=== PATIENT | female | born 1990 | race Caucasian/White ===

== ENCOUNTER 2017-10-19 10:07 | Emergency (ER) | payer MEDICARE, BC ==
--- NOTE | 2017-10-19 10:56 | ERPHSYRPT ---
- History of Present Illness Time Seen by Provider: 10/19/17 10:47 Source: patient Exam Limitations: no limitations Patient Subjective Stated Complaint: sore throat and acid reflux for three days. took extra prilosec yesterday with relief. patient and mother are concerned about taking too much prilosec with the renal failure. Triage Nursing Assessment: ambulated to room per self. skin w/d, color sallow. resp easy. Physician History: 27-year-old white female with history of the asthma, hypothyroidism, anxiety, ADD, bipolar depression, OCD Who states she is on CAPD secondary to renal failure. Arrives with complaint of chest pain, located in the sternal area described as like something is in there and it hurts to swallow. Patient without shortness of breath no nausea no vomiting. Patient initially presented to the nurses and stated that she was having a sore throat. Patient states symptoms since 9:00 last night. Past medical history includes asthma, hypothyroidism, anxiety, ADD, bipolar, depression, OCD. Past surgical history is negative Timing/Duration: yesterday (last night at 9:00) Severity: moderate Modifying Factors: Improves With: nothing Associated Symptoms: chest pain, No nausea, No vomiting, No abdominal pain, No shortness of breath, No heartburn, No diaphoresis, No cough, No chills, No fever , No headaches, No loss of appetite, No malaise, No rash, No seizure Allergies/Adverse Reactions: sulfamethoxazole [From Bactrim] Allergy (Verified 10/19/17 10:20) trimethoprim [From Bactrim] Allergy (Verified 10/19/17 10:20) Home Medications: Alprazolam [Xanax] 1 mg PO DAILY 05/02/14 [History] Fluvoxamine Maleate 100 mg PO BID 05/02/14 [History] Ibuprofen 800 mg PO TID 05/02/14 [History] Levothyroxine Sodium 100 Mcg [Synthroid 100 Mcg] 112 mcg PO DAILY 05/02/14 [History] [place] Carbonate 300 mg [[place] Carbonate 300 MG] 150 mg PO BID [History] Norethindrone-Ethinyl Estrad [Nortrel 1-35 Tablet] 1 each PO DAILY 05/02/14 [ History] Adalimumab [Humira Pen] 40 mg SQ UD 10/19/17 [History] Amlodipine Besylate 5 mg [Norvasc 5 mg] 5 mg PO DAILY 10/19/17 [History] Calcitriol [Rocaltrol] 0.25 mcg PO 3XW 10/19/17 [History] Cinacalcet HCl [Sensipar] 30 mg PO DAILY 10/19/17 [History] Ferric Citrate [Auryxia] 420 mg PO UD 10/19/17 [History] Ferric Citrate [Auryxia] 630 mg PO AC 10/19/17 [History] Hydrocodone/Acetaminophen [[place] 5-325 Tablet] 1 each PO DAILY 10/19/17 [History ] Melatonin/Pyridoxine HCl (B6) [Melatonin 10 mg Tablet] 1 each PO HS 10/19/17 [ History] Omeprazole 40 mg PO DAILY 10/19/17 [History] Potassium Chloride 10 Meq Tab* [Klor Con 10 MEQ] 10 meq PO BID 10/19/17 [ History] Hx Tetanus, Diphtheria Vaccination/Date Given: Yes Hx Influenza Vaccination/Date Given: Yes Hx Pneumococcal Vaccination/Date Given: Yes - Review of Systems Constitutional: No Fever, No Chills Eyes: No Symptoms Ears, Nose, & Throat: No Symptoms Respiratory: No Cough, No Dyspnea Cardiac: Chest Pain Abdominal/Gastrointestinal: No Abdominal Pain, No Nausea, No Vomiting, No Diarrhea Genitourinary Symptoms: No Dysuria Musculoskeletal: No Back Pain, No Neck Pain Skin: No Rash Neurological: No Dizziness, No Focal Weakness, No Sensory Changes Psychological: No Symptoms Endocrine: No Symptoms All Other Systems: Reviewed and Negative - Past Medical History Pertinent Past Medical History: Yes Neurological History: No Pertinent History Cardiac History: Hypertension Respiratory History: Asthma Endocrine Medical History: Hypothyroidism Musculoskeletal History: Fibromyalgia, Rheumatoid Arthritis History: Renal Disease Psycho-Social History: Anxiety, Attention Deficit Disorder, Bipolar, Depression Other Medical History: ocd, renal failure - Past Surgical History Past Surgical History: Yes Other Surgical History: fistula placment left arm (does not work), peritoneal port placed - Social History Smoking Status: Current every day smoker How long have you smoked: 3 Exposure to second hand smoke: Yes Drug Use: none Patient Lives Alone: No - Female History Hx Now: No - Nursing Vital Signs Nursing Vital Signs: Initial Vital Signs Temperature 98 F 07/01/18 10:15 Pulse Rate 77 10/19/17 10:15 Respiratory Rate 16 10/19/17 10:15 Blood Pressure 147/95 10/19/17 10:15 O2 Sat by Pulse Oximetry 98 10/19/17 10:15 Pain Scale Pain Intensity 8 - Physical Exam General Appearance: no apparent distress, alert, obese Eye Exam: PERRL/EOMI, eyes nml inspection Ears, Nose, Throat Exam: normal ENT inspection, TMs normal, pharynx normal, moist mucous membranes Neck Exam: normal inspection, non-tender, supple, full range of motion Respiratory Exam: normal breath sounds, lungs clear, No respiratory distress Cardiovascular Exam: regular rate/rhythm, normal heart sounds, normal peripheral pulses Gastrointestinal/Abdomen Exam: soft, normal bowel sounds, No tenderness, No mass Back Exam: normal inspection, normal range of motion, No CVA tenderness, No vertebral tenderness Extremity Exam: normal inspection, normal range of motion, pelvis stable Neurologic Exam: alert, oriented x 3, cooperative, 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, normal mood/affect, nml cerebellar function, nml station & gait, sensation nml, No motor deficits Skin Exam: normal color, warm, dry, No rash SpO2 Interpretation: normal (98%) SpO2: 98 Oxygen Delivery: Room Air - Course Nursing assessment & vital signs reviewed: Yes EKG Interpreted by Me: RATE (77 bpm), Sinus Rhythm, NORMAL AXIS, Other (EKG: Sinus rhythm, 77 bpm, normal axis, Q wave an isolated ST elevation in lead 3, no acute changes as compaed to previous ekg) - Radiology Exams Chest X-ray Interpretation: Interpreted by me (no acute disease process noted.) Ordered Tests: Active Orders 24 hr Category Date Time Status EKG-ER Only STAT Care 10/19/17 10:50 Active IV Insertion STAT Care 10/19/17 10:50 Active CHEST 1 VIEW (PORTABLE) Stat Exams 10/19/17 10:51 Taken AMYLASE Routine Lab 10/19/17 11:15 Completed AMYLASE Stat Lab 10/19/17 14:33 Completed CBC W DIFF Stat Lab 10/19/17 11:15 Completed CMP Routine Lab 10/19/17 11:15 Completed HCG QUALITATIVE,SERUM Stat Lab 10/19/17 11:15 Completed LIPASE Routine Lab 10/19/17 11:15 Completed LIPASE Stat Lab 10/19/17 14:33 Completed Manual Differential NC Stat Lab 10/19/17 11:15 Completed TROPONIN Q3H Lab 10/19/17 11:15 Completed TROPONIN Q3H Lab 10/19/17 14:00 Completed TROPONIN Q3H Lab 10/19/17 17:00 Ordered TROPONIN Q3H Lab 10/19/17 20:00 Ordered TROPONIN Q3H Lab 10/19/17 23:00 Ordered Medication Summary Discontinued Medications Generic Name Dose Route Start Last Admin Trade Name Freq PRN Reason Stop Dose Admin Aspirin 162 mg 10/19/17 10:50 10/19/17 11:03 Baby Aspirin 81 Mg Chew PO 10/19/17 10:51 162 mg STAT ONE Administration Morphine Sulfate 4 mg 10/19/17 13:17 10/19/17 13:36 Morphine Sulfate 4 Mg Inj IV 10/19/17 13:18 4 mg STAT ONE Administration Morphine Sulfate Confirm 10/19/17 13:20 Morphine Sulfate 4 Mg Inj Administered 10/19/17 13:21 Dose 4 mg .ROUTE .STK-MED ONE Ondansetron HCl 4 mg 10/19/17 13:17 10/19/17 13:36 Zofran 4 Mg/2 Ml Vial IV 10/19/17 13:18 4 mg STAT ONE Administration Ondansetron HCl Confirm 10/19/17 13:20 Zofran 4 Mg/2 Ml Vial Administered 10/19/17 13:21 Dose 4 mg .ROUTE .STK-MED ONE Lab/Rad Data: Laboratory Result Diagrams 10/19/17 11:15 10/19/17 11:15 Laboratory Results 10/19/17 10/19/17 10/19/17 Range/Units 14:33 14:00 11:15 WBC (4.0-10.5) K/mm3 RBC (4.1-5.4) M/mm3 Hgb (12.0-16.0) gm/dl Hct (35-47) % MCV (78-100) fl MCH (26-32) pg MCHC (32-36) g/dl RDW (11.5-14.0) % Plt Count (150-450) K/mm3 MPV (6-9.5) fl Absolute Granulocytes (1.4-6.9) Segmented Neutrophils (36.0-66.0) % Lymphocytes (Manual) (24-44) % Monocytes (Manual) (0.0-12.0) % Eosinophils (Manual) (0.00-3.0) % Platelet Estimate (NORMAL) RBC Morphology Sodium (137-145) mmol/L Potassium (3.5-5.1) mmol/L Chloride (98-107) mmol/L Carbon Dioxide (22-30) mmol/L Anion Gap (5-15) MEQ/L BUN (7-17) mg/dL Creatinine (0.52-1.04) mg/dL Estimated GFR ML/MIN Glucose (74-106) mg/dL Calcium (8.4-10.2) mg/dL Total Bilirubin (0.2-1.3) mg/dL AST (14-36) U/L ALT (0-35) U/L Alkaline Phosphatase (38-126) U/L Troponin I 0.019 (0.000-0.034) ng/mL Serum Total Protein (6.3-8.2) g/dL Albumin (3.5-5.0) g/dL Amylase 69 (30-110) U/L Lipase 96 (23-300) U/L Serum , Qual NEGATIVE (Negative) 10/19/17 10/19/17 Range/Units 11:15 11:15 WBC 14.4 H (4.0-10.5) K/mm3 RBC 2.87 L (4.1-5.4) M/mm3 Hgb 9.1 L (12.0-16.0) gm/dl Hct 28.6 L (35-47) % MCV 99.7 (78-100) fl MCH 31.7 (26-32) pg MCHC 31.8 L (32-36) g/dl RDW 13.4 (11.5-14.0) % Plt Count 295 (150-450) K/mm3 MPV 9.7 H (6-9.5) fl Absolute Granulocytes 12.12 H (1.4-6.9) Segmented Neutrophils 87 H (36.0-66.0) % Lymphocytes (Manual) 8 L (24-44) % Monocytes (Manual) 4 (0.0-12.0) % Eosinophils (Manual) 1 (0.00-3.0) % Platelet Estimate NORMAL (NORMAL) RBC Morphology NORMAL Sodium 137 (137-145) mmol/L Potassium 3.8 (3.5-5.1) mmol/L Chloride 98 (98-107) mmol/L Carbon Dioxide 26 (22-30) mmol/L Anion Gap 16.1 H (5-15) MEQ/L BUN 101 H (7-17) mg/dL Creatinine 15.68 H (0.52-1.04) mg/dL Estimated GFR 3.0 ML/MIN Glucose 92 (74-106) mg/dL Calcium 8.3 L (8.4-10.2) mg/dL Total Bilirubin 0.40 (0.2-1.3) mg/dL AST 18 (14-36) U/L ALT 22 (0-35) U/L Alkaline Phosphatase 443 H (38-126) U/L Troponin I 0.020 (0.000-0.034) ng/mL Serum Total Protein 6.5 (6.3-8.2) g/dL Albumin 3.7 (3.5-5.0) g/dL Amylase 70 (30-110) U/L Lipase 104 (23-300) U/L Serum , Qual (Negative) - Progress Progress: improved Progress Note: 10/19/17 13:18 27-year-old white female arrives with complaint of pain in the low sternal area since last night initially told the nurse and felt like she was having reflux and was making her throat sore however when I talk with the patient she states that she had pain. The pain has been constant since last night. Patient does have a history of peritoneal dialysis. Patient with an EKG which shows isolated ST elevation in lead 3 there does not appear to be any other changes an EKG is unchanged from previous EKGs. Patient has a chest x-ray was unremarkable. Patient with a white count of 14.4 hemoglobin 9.1 hematocrit 28.6 platelets 295. Patient's chemistry sodium 137 potassium 3.8 chloride 98 bicarbonate 26 BUN 101 creatinine 15.6 glucose is 92. Patient's alkaline phosphatase 443 troponin is normal at 0.020 hCG is negative. Patient is given 281 mg aspirin she states she is still having pain. Note is made of her markedly elevated BUN and creatinine the patient's mother states that is normal for her and she had does peritoneal dialysis at home. Will give Motrin patient morphine 4 mg IV Zofran 4 mg IV obtain amylase and lipase. And we will obtain repeat troponin. Patient and her mother are wanting the patient to go home. 10/19/17 14:48 Patient is in no distress she is eating Repeat troponin within normal limits amylase lipase are within normal limits. Will discharge patient patient to continue CAPD as directed by her renal physician and/or family physician. She is to follow-up with her family doctor. - Departure Time of Disposition: 14:48 Departure Disposition: Home Clinical Impression: Non-cardiac chest pain Chronic renal failure Qualifiers: Chronic kidney disease stage: unspecified stage Qualified Code(s): N18.9 - Chronic kidney disease, unspecified Condition: Fair Critical Care Time: No Referrals: BISHOP ARIAS [Primary Care Provider] - Additional Instructions: Return home. Plenty of fluids. Follow-up with your family doctor. CAPD as directed by your renal physician/ family doctor. Return for acute distress or for severe symptoms.
[2017-10-19] MEDS: BABY ASPIRIN 81 MG CHEW PO ONE (11:03)
[2017-10-19 11:47] LABS: Granulocyte Absolute (ANC) 12.12 (1.4-6.9); Hematocrit 28.6 % (35-47); Hemoglobin 9.1 gm/dl (12.0-16.0); Mean Cell Volume 99.7 fl (78-100); Mean Corpuscular Hemoglobin 31.7 pg (26-32); Mean Corpuscular Hgb Concent. 31.8 g/dl (32-36); Mean Platelet Volume 9.7 fl (6-9.5); Platelet Count 295 K/mm3 (150-450); Red Blood Count 2.87 M/mm3 (4.1-5.4); Red Cell Distribution Width 13.4 % (11.5-14.0); White Blood Count 14.4 K/mm3 (4.0-10.5)
[2017-10-19 12:00] LABS: ALBUMIN 3.7 g/dL (3.5-5.0); ANION GAP 16.1 MEQ/L (5-15); BILIRUBIN,TOTAL 0.4 mg/dL (0.2-1.3); Calcium 8.3 mg/dL (8.4-10.2); Potassium 3.8 mmol/L (3.5-5.1); Total Protein 6.5 g/dL (6.3-8.2)
[2017-10-19 12:12] LABS: TROPONIN 0.02 ng/mL (0.000-0.034)
[2017-10-19 12:17] LABS: Creatinine 1 15.68 mg/dL (0.52-1.04)
[2017-10-19] MEDS ORDERED: MORPHINE SULFATE 4 MG INJ ONE (13:20)
[2017-10-19] MEDS ORDERED: Zofran 4 MG/2 ML VIAL ONE (13:20)
[2017-10-19] MEDS: MORPHINE SULFATE 4 MG INJ IV ONE (13:36)
[2017-10-19] MEDS: Zofran 4 MG/2 ML VIAL IV ONE (13:36)
[2017-10-19 13:38] VITALS: BP 139/87; PULSE 86
[2017-10-19 14:20] LABS: Eosinophil 1 % (0.00-3.0); Lymphocytes 8 % (24-44); Monocyte 4 % (0.0-12.0); Neutrophils 87 % (36.0-66.0); Total Cells Counted 100
[2017-10-19 14:21] LABS: Platelet Estimate NORMAL (NORMAL)
[2017-10-19 14:23] LABS: AMYLASE 69 U/L (30-110); LIPASE 96 U/L (23-300)
[2017-10-19 14:49] VITALS: O2SAT 98
--- NOTE | 2017-10-19 19:41 | XRAY ---
Indication: Chest pain. Comparison: May 02, 2014. Portable chest demonstrates borderline cardiomegaly, less than before. Remaining lungs and bony thorax unremarkable. No new/acute findings.
== END 2017-10-19 14:59 | disposition home or self-care (01) ==
LOC: ED 10:07
DX: R07.89 Other chest pain (principal); I12.9 Hypertensive chronic kidney disease with stage 1 through stage 4 chronic kidney disease, or unspecified chronic kidney disease; N18.9 Chronic kidney disease, unspecified; Z99.2 Dependence on renal dialysis; J45.909 Unspecified asthma, uncomplicated; E03.9 Hypothyroidism, unspecified; M79.7 Fibromyalgia; M06.9 Rheumatoid arthritis, unspecified; F41.9 Anxiety disorder, unspecified; F31.9 Bipolar disorder, unspecified; F42.9 Obsessive-compulsive disorder, unspecified; Z72.0 Tobacco use; Z79.899 Other long term (current) drug therapy
CPT/HCPCS: 36000; 36415; 71045; 80053; 82150; 83690; 84484; 84703; 85025; 93005; 96374; 96375; 99284; J2270; J2405; A9270-GY

== ENCOUNTER 2018-05-30 09:37 | Emergency (ER) | payer MEDICARE, BC ==
--- NOTE | 2018-05-30 10:52 | ERPHSYRPT ---
- History of Present Illness Time Seen by Provider: 05/30/18 10:35 Source: patient, family Exam Limitations: no limitations Patient Subjective Stated Complaint: WAS CUTTING POTATOES THIS AND AND CUT 2ND DIGIT LEFT HAND WITH THE PARING KNIFE. HAS PUT PRESSURE ON SITE WITH A BANDAID. Triage Nursing Assessment: AMBULATED TO ROOM PER SELF. SKIN W/D, COLOR NORMAL, RESP EASY. HAS 2CM LAC TO 2ND DIGIT LEFT HAND WITH SMALL AMT BLEEDING. IS ABLE TO BEND FINGER. Physician History: 27 y/o right handed white female was peeling potatoes this am and accidentally cut her left index finger. could not stop bleeding. tetanus not utd. Timing/Duration: today Quality: painful Severity: mild Location: hands (left index finger) Associated Symptoms: denies symptoms Allergies/Adverse Reactions: heparin Allergy (Verified 05/30/18 09:52) hydromorphone [From Dilaudid] Allergy (Verified 05/30/18 10:00) naproxen Allergy (Verified 05/30/18 10:00) sulfamethoxazole [From Bactrim] Allergy (Verified 10/19/17 10:20) trimethoprim [From Bactrim] Allergy (Verified 10/19/17 10:20) vancomycin Allergy (Verified 05/30/18 10:00) Home Medications: Alprazolam [Xanax] 1 mg PO DAILY 05/02/14 [History] Fluvoxamine Maleate 100 mg PO BID 05/02/14 [History] Levothyroxine Sodium 100 Mcg [Synthroid 100 Mcg] 112 mcg PO DAILY 05/02/14 [History] [place] Carbonate 300 mg [[place] Carbonate 300 MG] 150 mg PO BID [History] Adalimumab [Humira Pen] 40 mg SQ UD 10/19/17 [History] Amlodipine Besylate 5 mg [Norvasc 5 mg] 5 mg PO DAILY 10/19/17 [History] Calcitriol [Rocaltrol] 0.25 mcg PO 3XW 10/19/17 [History] Cinacalcet HCl [Sensipar] 30 mg PO DAILY 10/19/17 [History] Ferric Citrate [Auryxia] 420 mg PO UD 10/19/17 [History] Ferric Citrate [Auryxia] 630 mg PO AC 10/19/17 [History] Hydrocodone/Acetaminophen [[place] 5-325 Tablet] 1 each PO DAILY 10/19/17 [History ] Melatonin/Pyridoxine HCl (B6) [Melatonin 10 mg Tablet] 1 each PO HS 10/19/17 [ History] Omeprazole 40 mg PO DAILY 10/19/17 [History] Potassium Chloride 10 Meq Tab* [Klor Con 10 MEQ] 10 meq PO BID 10/19/17 [ History] Ergocalciferol (Vitamin D2) [Vitamin D] 50,000 unit PO UD 05/30/18 [History] Hx Tetanus, Diphtheria Vaccination/Date Given: Yes Hx Influenza Vaccination/Date Given: Yes Hx Pneumococcal Vaccination/Date Given: No - Review of Systems Constitutional: No Symptoms Eyes: No Symptoms Ears, Nose, & Throat: No Symptoms Respiratory: No Symptoms Cardiac: No Symptoms Abdominal/Gastrointestinal: No Symptoms Genitourinary Symptoms: No Symptoms Musculoskeletal: No Symptoms Skin: Other (1cm lac left index finger) Neurological: No Symptoms Psychological: No Symptoms Endocrine: No Symptoms Hematologic/Lymphatic: No Symptoms Immunological/Allergic: No Symptoms All Other Systems: Reviewed and Negative - Past Medical History Pertinent Past Medical History: Yes Neurological History: No Pertinent History ENT History: No Pertinent History Cardiac History: Hypertension Respiratory History: Asthma Endocrine Medical History: Hypothyroidism Musculoskeletal History: Fibromyalgia, Rheumatoid Arthritis GI Medical History: No Pertinent History History: Renal Disease Psycho-Social History: Anxiety, Attention Deficit Disorder, Bipolar, Depression Female Reproductive Disorders: No Pertinent History Other Medical History: ocd, renal failure - Past Surgical History Past Surgical History: Yes Neuro Surgical History: No Pertinent History Cardiac: No Pertinent History Respiratory: No Pertinent History Gastrointestinal: No Pertinent History Genitourinary: No Pertinent History Musculoskeletal: No Pertinent History Female Surgical History: No Pertinent History Other Surgical History: fistula placment left arm (does not work), peritoneal port placed - Social History Smoking Status: Former smoker How long have you smoked: 3 Exposure to second hand smoke: Yes Drug Use: none Patient Lives Alone: No - Female History Hx Now: No - Nursing Vital Signs Nursing Vital Signs: Initial Vital Signs Temperature 97.6 F 05/30/18 09:44 Pulse Rate 77 05/30/18 09:44 Respiratory Rate 16 05/30/18 09:44 Blood Pressure 125/83 05/30/18 09:44 O2 Sat by Pulse Oximetry 97 05/30/18 09:44 Pain Scale Pain Intensity 3 - Physical Exam General Appearance: no apparent distress, alert Eye Exam: PERRL/EOMI, eyes nml inspection Ears, Nose, Throat Exam: normal ENT inspection, moist mucous membranes Neck Exam: normal inspection, non-tender, supple, full range of motion Respiratory Exam: normal breath sounds, lungs clear, airway intact, No chest tenderness, No respiratory distress, No accessory muscle use, No rhonchi, No wheezing, No stridor Cardiovascular Exam: regular rate/rhythm, normal heart sounds, normal peripheral pulses Gastrointestinal/Abdomen Exam: soft, normal bowel sounds, No tenderness, No guarding Pelvic Exam: not done Rectal Exam: not done Back Exam: normal inspection, normal range of motion, No CVA tenderness, No vertebral tenderness Extremity Exam: normal inspection, normal range of motion, No pelvis stable Neurologic Exam: alert, oriented x 3, cooperative, 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 oozes blood when finger flexed. nv intact, tendon function intact) Lymphatic Exam: No adenopathy SpO2: 97 O2 Delivery: Room Air Procedures - Laceration/Wound Repair Left Dorsal Finger Wound Location: Left, hand Wound Length (cm): 1 Wound's Depth, Shape: superficial Wound Explored: clean Hibiclens Prep: Yes Anesthesia: local, 1% Lidocaine Wound Repaired With: sutures (2) Suture Size/Type: 4-0, prolene Number of Sutures: 2 Sterile Dressing Applied?: Yes Progress: 05/30/18 11:27 no complications. pt salvador well - Course Nursing assessment & vital signs reviewed: Yes Ordered Tests: Medication Summary Discontinued Medications Generic Name Dose Route Start Last Admin Trade Name Freq PRN Reason Stop Dose Admin Bacitracin Zinc 0.9 gm 05/30/18 10:59 05/30/18 11:10 Baciguent Packet TP 05/30/18 11:00 0.9 gm STAT ONE Administration Bacitracin Zinc Confirm 05/30/18 11:07 Baciguent Packet Administered 05/30/18 11:08 Dose 1 gm .ROUTE .STK-MED ONE Diphtheria/Tetanus/Acell Pertussis 0.5 ml 05/30/18 10:56 05/30/18 11:09 Adacel Vial IM 05/30/18 10:57 0.5 ml .ONCE ONE Administration Diphtheria/Tetanus/Acell Pertussis Confirm 05/30/18 11:07 Adacel Vial Administered 05/30/18 11:08 Dose 0.5 ml IM .STK-MED ONE Lidocaine HCl 50 mg 05/30/18 11:01 05/30/18 11:09 Xylocaine-Mpf 1% 5ml Sdv IJ 05/30/18 11:02 Not Given STAT ONE Lidocaine HCl Confirm 05/30/18 11:07 Xylocaine 1% Hcl 20 Ml Mdv Administered 05/30/18 11:08 Dose 5 ml .ROUTE .STK-MED ONE Lidocaine HCl 5 ml 05/30/18 11:08 05/30/18 11:09 Xylocaine 1% Hcl 20 Ml Mdv IJ 05/30/18 11:09 5 ml STAT ONE Administration - Progress Progress: improved Counseled pt/family regarding: diagnosis, need for follow-up - Departure Time of Disposition: 11:28 Departure Disposition: Home Clinical Impression: Finger laceration Condition: Stable Critical Care Time: No Referrals: TOSHIA ESPINOZA MD [Primary Care Provider] - Additional Instructions: keep dry for 24 hours. after 24 hours, may wash daily with soap and water. apply antibiotic ointment and bandaid after each wash. suture removal in 8 ot 10 days.
[2018-05-30] MEDS ORDERED: Adacel Vial IM ONE ×2 (10:56→11:07)
[2018-05-30] MEDS ORDERED: BACIGUENT PACKET TP ONE (10:59)
[2018-05-30] MEDS ORDERED: XYLOCAINE-MPF 1% 5ML SDV IJ ONE (11:01)
[2018-05-30] MEDS ORDERED: XYLOCAINE 1% HCL 20 ML MDV ONE (11:07)
[2018-05-30] MEDS ORDERED: BACIGUENT PACKET ONE (11:07)
[2018-05-30] MEDS ORDERED: XYLOCAINE 1% HCL 20 ML MDV IJ ONE (11:08)
[2018-05-30 11:22] VITALS: BP 124/75; PULSE 75
[2018-05-30 11:29] VITALS: O2SAT 97
== END 2018-05-30 12:14 | disposition home or self-care (01) ==
LOC: ED 09:37
DX: S61.211A Laceration without foreign body of left index finger without damage to nail, initial encounter (principal); W26.0XXA Contact with knife, initial encounter; M79.7 Fibromyalgia; F31.9 Bipolar disorder, unspecified; M06.9 Rheumatoid arthritis, unspecified; Z79.899 Other long term (current) drug therapy
CPT/HCPCS: 12001; 90471; 90715; 96372; 99284; A9270-GY

== ENCOUNTER 2018-09-29 20:29 | Emergency (ER) | payer MEDICARE, BC ==
[2018-09-29 21:24] VITALS: O2SAT 100
[2018-09-29] MEDS ORDERED: Norco 10/325 MG Tablet PO STA (22:11)
[2018-09-29] MEDS ORDERED: Norco 10/325 MG Tablet ONE (22:13)
[2018-09-29] MEDS ORDERED: ROCEPHIN 1 Gm-D5w 50 ml Bag** 1 G/50 ML IVPB IV STA (22:18)
[2018-09-29] MEDS ORDERED: ROCEPHIN 1 Gm-D5w 50 ml Bag** 1 G/50 ML IVPB IV ONE (22:22)
--- NOTE | 2018-09-29 22:25 | ERPHSYRPT ---
- History of Present Illness Historian: patient Exam Limitations: no limitations Patient Subjective Stated Complaint: pt is alert and oriented. pt is ambulatory with a steady gait. pt comes in with c/o pelvic pain. pt states that she's had this pain for "about a week" pt states that she had mirena put in a week ago and was also put on Otezla and had a reaction to it that included n/v/d. pt states that she is having a small amount of vaginal spotting that is pink in color. pt states that she is having some burning with urination. pt bowel sounds are normoactive throughout. pt is a peritoneal dialysis pt and has dialysis daily. pt was diagnosed with peritonitis at the end of August and was put on clindamycin and cubicin for that. Triage Nursing Assessment: see above Physician History: Pt is a 28 y/o female with a H/O PD, that presented to the ED with abdominal pain, that is suprapubic. Per pt she had her PD fluid checked today and that was normal, with no signs of infection. Pt denies F/C/S. No SOB or cough. She does produce some urine but only minimally. Pt does complain of signs of UTI, and states, had it before. Timing/Duration: today Activities at Onset: none Quality: cramping Abdominal Pain Onset Location: suprapubic Pain Radiation: no radiation Severity of Pain-Max: mild Severity of Pain-Current: mild Modifying Factors: Improves With: analgesics Associated Symptoms: denies symptoms Previous symptoms: no prior history Allergies/Adverse Reactions: heparin Allergy (Verified 05/30/18 09:52) hydromorphone [From Dilaudid] Allergy (Verified 05/30/18 10:00) naproxen Allergy (Verified 05/30/18 10:00) sulfamethoxazole [From Bactrim] Allergy (Verified 10/19/17 10:20) trimethoprim [From Bactrim] Allergy (Verified 10/19/17 10:20) vancomycin Allergy (Verified 05/30/18 10:00) Home Medications: Alprazolam [Xanax] 0.5 mg PO BID 05/02/14 [History] Fluvoxamine Maleate 100 mg PO BID 05/02/14 [History] Levothyroxine Sodium 100 Mcg [Synthroid 100 Mcg] 137 mcg PO DAILY 05/02/14 [History] [place] Carbonate 300 mg [[place] Carbonate 300 MG] 150 mg PO BID [History] Amlodipine Besylate 5 mg [Norvasc 5 mg] 5 mg PO DAILY 10/19/17 [History] Calcitriol [Rocaltrol] 0.5 mcg PO DAILY 10/19/17 [History] Ferric Citrate [Auryxia] 420 mg PO UD 10/19/17 [History] Ferric Citrate [Auryxia] 630 mg PO AC 10/19/17 [History] Hydrocodone/Acetaminophen [[place] 5-325 Tablet] 1 each PO BID PRN PRN 10/19/17 [ History] Melatonin/Pyridoxine HCl (B6) [Melatonin 10 mg Tablet] 10 mg PO HS 10/19/17 [ History] Omeprazole 40 mg PO DAILY 10/19/17 [History] Potassium Chloride 10 Meq Tab* [Klor Con 10 MEQ] 80 meq PO DAILY 10/19/17 [ History] Ergocalciferol (Vitamin D2) [Vitamin D] 50,000 unit PO UD 05/30/18 [History] Albuterol Sulfate [Proair Hfa] 8.5 gm IH Q4H PRN PRN 09/29/18 [History] Hx Tetanus, Diphtheria Vaccination/Date Given: Yes Hx Influenza Vaccination/Date Given: Yes Hx Pneumococcal Vaccination/Date Given: No Immunizations Up to Date: Yes - Review of Systems Constitutional: No Fever, No Chills Eyes: No Symptoms Ears, Nose, & Throat: No Symptoms Respiratory: No Cough, No Dyspnea Cardiac: No Chest Pain, No Edema, No Syncope Abdominal/Gastrointestinal: Abdominal Pain (suprapubic) Genitourinary Symptoms: No Symptoms, Other (PD pt.) Musculoskeletal: No Back Pain, No Neck Pain Neurological: No Dizziness, No Focal Weakness, No Sensory Changes - Past Medical History Pertinent Past Medical History: Yes Neurological History: No Pertinent History ENT History: No Pertinent History Cardiac History: Hypertension Respiratory History: Asthma Endocrine Medical History: Hypothyroidism Musculoskeletal History: Fibromyalgia, Rheumatoid Arthritis GI Medical History: No Pertinent History History: Renal Disease Psycho-Social History: Anxiety, Attention Deficit Disorder, Bipolar, Depression Female Reproductive Disorders: No Pertinent History Other Medical History: ocd, renal failure - Past Surgical History Past Surgical History: Yes Neuro Surgical History: No Pertinent History Cardiac: Cardiac Catheterization Respiratory: No Pertinent History Gastrointestinal: No Pertinent History Genitourinary: Other Musculoskeletal: No Pertinent History Female Surgical History: No Pertinent History Other Surgical History: fistula placment left arm (does not work), peritoneal port placed, mirena placement, central line, catheter placements, kidney biopsy - Social History Smoking Status: Former smoker How long have you smoked: 3 Exposure to second hand smoke: Yes Drug Use: none Patient Lives Alone: No - Female History Hx Now: No (mirena a week ago) - Nursing Vital Signs Nursing Vital Signs: Initial Vital Signs Temperature 97.9 F 09/29/18 20:33 Pulse Rate 88 09/29/18 20:33 Respiratory Rate 18 09/29/18 20:33 Blood Pressure 151/102 09/29/18 20:33 O2 Sat by Pulse Oximetry 98 09/29/18 20:33 Pain Scale Pain Intensity 8 - Physical Exam General Appearance: no apparent distress, alert Eye Exam: PERRL/EOMI, eyes nml inspection Ears, Nose, Throat Exam: normal ENT inspection, pharynx normal, moist mucous membranes Neck Exam: normal inspection, non-tender, supple, full range of motion Respiratory Exam: normal breath sounds, lungs clear, No respiratory distress Cardiovascular Exam: regular rate/rhythm, normal heart sounds Gastrointestinal/Abdomen Exam: soft, tenderness (suprapubic), No mass Back Exam: normal inspection, normal range of motion, No CVA tenderness, No vertebral tenderness Extremity Exam: normal inspection, normal range of motion, pelvis stable Neurologic Exam: alert, oriented x 3, cooperative, normal mood/affect, nml cerebellar function, sensation nml, No motor deficits SpO2: 100 Ordered Tests: Active Orders 24 hr Category Date Time Status IV Insertion STAT Care 09/29/18 20:57 Active Urinalysis with Microscopy Stat Lab 09/29/18 21:07 Ordered Medication Summary Generic Name Dose Route Start Last Admin Trade Name Freq PRN Reason Stop Dose Admin Ceftriaxone Sodium/Dextrose 1 g in 50 mls @ 100 mls/hr 09/29/18 22:18 Rocephin 1 Gm-D5w 50 Ml Bag IV 09/29/18 22:47 STAT STA Discontinued Medications Generic Name Dose Route Start Last Admin Trade Name Freq PRN Reason Stop Dose Admin Hydrocodone Bitart/Acetaminophen 1 tab 09/29/18 22:11 09/29/18 22:14 [place] 10/325 Mg Tablet PO 09/29/18 22:12 1 tab ONCE STA Administration Hydrocodone Bitart/Acetaminophen Confirm 09/29/18 22:13 [place] 10/325 Mg Tablet Administered 09/29/18 22:14 Dose 1 tab .ROUTE .STK-MED ONE - Progress Progress: unchanged Progress Note: 09/29/18 22:23 Pt was seen and examined. UA was sent, but as pt produced very little urine, it was not enough to check. I explained to the pt, I am treating her empirically for UTI, and I gave her Ceftriaxone IV 1gr. Pt got [place] for pain. Pt is advised to see her Gas Truck Driver for ABX dosing, secondarey to being PD pt. For now that ABX will cover her. Discussed with : Ham Will see patient in: office Counseled pt/family regarding: need for follow-up - Departure Departure Disposition: Home Clinical Impression: UTI (urinary tract infection) Condition: Stable Critical Care Time: No Referrals: TOSHIA ESPINOZA MD [Primary Care Provider] - Additional Instructions: F/U with Nephrology in the AM, for continuing ABX therapy and dosing. F/U with PCP.
[2018-09-29 22:47] VITALS: BP 141/83; PULSE 84
== END 2018-09-29 22:52 | disposition home or self-care (01) ==
LOC: ED 20:29
DX: N39.0 Urinary tract infection, site not specified (principal)
CPT/HCPCS: 36000; 96366; 99284; J0696; A9270-GY

== ENCOUNTER 2019-01-03 23:08 | Emergency (ER) | payer MEDICARE, BC ==
--- NOTE | 2019-01-03 23:43 | ERPHSYRPT ---
- History of Present Illness Time Seen by Provider: 01/03/19 23:30 Source: family Exam Limitations: no limitations Patient Subjective Stated Complaint: pt c/o cough, congested, and difficulty bringing up any sputum with cough. Hoarseness, sore to neck area. Pt saw Zahira Stevenson NP on , was given atb and steroid, no improvement. Triage Nursing Assessment: pt alert and oriented x3, pleasant. Lungs clear throughout, heart tones reg, abd soft with active bs x4 quad, nontender. Pt c/ o cough and having trouble getting up secretions. Pt c/o neck pain, achiness to that area. Physician History: Patient has had a cough and congestion for 6 days. Patient was seen 3 days ago and started on a Z-pack as her brother was recently diagnosed with viral pneumonia. Patient is not any better and mother is requesting a chest x-ray Timing/Duration: day(s) (6) Cough Quality/Degree: moderate, dry cough Possible Cause: frequent episodes Modifying Factors: Improves With: albuterol nebulizer (helps her cough ). Worsens With: deep breath, rest Associated Symptoms: cough, muscle aches, nasal drainage, wheezing, No fever, No chills, No chest pain/soreness, No dizziness, No earache, No facial pain, No headache, No shortness of breath, No sinus infection, No sore throat International travel in last 2 weeks: No Allergies/Adverse Reactions: hydromorphone [From Dilaudid] Allergy (Verified 05/30/18 10:00) naproxen Allergy (Verified 05/30/18 10:00) sulfamethoxazole [From Bactrim] Allergy (Verified 10/19/17 10:20) trimethoprim [From Bactrim] Allergy (Verified 10/19/17 10:20) vancomycin Allergy (Verified 05/30/18 10:00) Home Medications: Alprazolam [Xanax] 0.5 mg PO BID 05/02/14 [History] Fluvoxamine Maleate 100 mg PO BID 05/02/14 [History] Levothyroxine Sodium 100 Mcg [Synthroid 100 Mcg] 137 mcg PO DAILY 05/02/14 [History] [place] Carbonate 300 mg [[place] Carbonate 300 MG] 150 mg PO BID [History] Amlodipine Besylate 5 mg [Norvasc 5 mg] 5 mg PO DAILY 10/19/17 [History] Calcitriol [Rocaltrol] 0.5 mcg PO DAILY 10/19/17 [History] Ferric Citrate [Auryxia] 420 mg PO UD 10/19/17 [History] Ferric Citrate [Auryxia] 630 mg PO AC 10/19/17 [History] Hydrocodone/Acetaminophen [[place] 5-325 Tablet] 1 each PO BID PRN PRN 10/19/17 [ History] Melatonin/Pyridoxine HCl (B6) [Melatonin 10 mg Tablet] 10 mg PO HS 10/19/17 [ History] Ergocalciferol (Vitamin D2) [Vitamin D] 50,000 unit PO UD 05/30/18 [History] Albuterol Sulfate [Proair Hfa] 8.5 gm IH Q4H PRN PRN 09/29/18 [History] Carvedilol 12.5 mg [Coreg 12.5 mg] 12.5 mg PO BID 01/03/19 [History] Pantoprazole Sodium [Protonix] 40 mg PO DAILY 01/03/19 [History] Hx Tetanus, Diphtheria Vaccination/Date Given: Yes Hx Influenza Vaccination/Date Given: Yes Hx Pneumococcal Vaccination/Date Given: Yes Immunizations Up to Date: Yes - Review of Systems Constitutional: No Fever, No Chills Eyes: No Eye Pain, No Eye Redness, No Vision Changes Ears, Nose, & Throat: No Symptoms, Nose Congestion, No Ear Discharge, No Throat Pain Respiratory: No Cough, No Dyspnea Cardiac: No Chest Pain, No Edema, No Syncope Abdominal/Gastrointestinal: No Abdominal Pain, No Nausea, No Vomiting, No Diarrhea Genitourinary Symptoms: No Dysuria, No Flank Pain Musculoskeletal: Myalgias, No Back Pain, No Neck Pain Skin: No Rash Neurological: No Dizziness, No Focal Weakness, No Sensory Changes Psychological: No Symptoms Endocrine: No Symptoms Hematologic/Lymphatic: No Easy Bleeding, No Easy Bruising All Other Systems: Reviewed and Negative - Past Medical History Pertinent Past Medical History: Yes Neurological History: No Pertinent History ENT History: No Pertinent History Cardiac History: Hypertension Respiratory History: Asthma Endocrine Medical History: Hypothyroidism Musculoskeletal History: Fibromyalgia, Rheumatoid Arthritis GI Medical History: No Pertinent History History: Renal Disease Psycho-Social History: Anxiety, Attention Deficit Disorder, Bipolar, Depression Female Reproductive Disorders: No Pertinent History Other Medical History: ocd, renal failure, autoimmune disorder - Past Surgical History Past Surgical History: Yes Neuro Surgical History: No Pertinent History Cardiac: Cardiac Catheterization Respiratory: No Pertinent History Gastrointestinal: No Pertinent History Genitourinary: Other Musculoskeletal: No Pertinent History Female Surgical History: No Pertinent History Other Surgical History: fistula placment left arm (does not work), dialysis cath rt subclavian, mirena placement, kidney biopsy - Social History Smoking Status: Former smoker How long have you smoked: 3 Exposure to second hand smoke: Yes Drug Use: none Patient Lives Alone: No - Female History Hx Last Menstrual Period: mirena Hx Now: No - Nursing Vital Signs Nursing Vital Signs: Initial Vital Signs Temperature 98.3 F 01/03/19 23:08 Pulse Rate 73 01/03/19 23:08 Respiratory Rate 17 01/03/19 23:08 Blood Pressure 128/88 01/03/19 23:08 O2 Sat by Pulse Oximetry 96 01/03/19 23:08 Pain Scale Pain Intensity 0 - Physical Exam General Appearance: no apparent distress, alert Eye Exam: PERRL/EOMI, eyes nml inspection, No scleral icterus Ears, Nose, Throat Exam: normal ENT inspection, TMs normal, pharynx normal, moist mucous membranes Neck Exam: normal inspection, non-tender, supple, full range of motion Respiratory Exam: normal breath sounds, lungs clear, airway intact, No chest tenderness, No respiratory distress, No diminished breath sounds, No accessory muscle use, No prolonged expirations, No crackles/rales, No rhonchi, No wheezing , No stridor Cardiovascular Exam: regular rate/rhythm, normal heart sounds, capillary refill <2 sec Gastrointestinal/Abdomen Exam: soft, No tenderness, No distention, No mass Back Exam: normal inspection, No CVA tenderness, No vertebral tenderness Extremity Exam: normal inspection, normal range of motion Neurologic Exam: alert, oriented x 3, cooperative, security researcher II-XII nml as tested, normal mood/affect, sensation nml, No motor deficits Skin Exam: normal color, warm, dry, No rash Lymphatic Exam: No adenopathy SpO2 Interpretation: normal SpO2: 96 O2 Delivery: Room Air Ordered Tests: Active Orders 24 hr Category Date Time Status CHEST 2 VIEWS (PA AND LAT) Stat Exams 01/04/19 00:51 Taken - Progress Progress: re-examined Air Movement: good Progress Note: 01/04/19 01:41 patient has excellent air movement throughout her lung avitia without any abnormal breath sounds, no respiratory distress, no hypoxia with no tachypnea and no accessory muscle use noted. Blood Culture(s) Obtained: No Antibiotics given: No Counseled pt/family regarding: diagnosis, need for follow-up, rad results - Departure Departure Disposition: Home Clinical Impression: Cough in adult, Elevated blood pressure reading without diagnosis of hypertension Condition: Good Critical Care Time: No Referrals: TOSHIA ESPINOZA MD [Primary Care Provider] - Follow Up with PCP/3 days Instructions: Cough, Adult (DC) Additional Instructions: We will notify you if the Radiologist interprets anything different from the ED physician's interpretation that will change your management. Return if any worse at any time if you have worse cough, worse pain, new shortness of breath, new chest pain, new fever or any other concerning signs or symptoms for immediate re-evaluation in the emergency department.
[2019-01-04 01:46] VITALS: BP 130/73; PULSE 70; O2SAT 96
--- NOTE | 2019-01-04 09:27 | XRAY ---
Indication: Cough. Comparison: October 19, 2017. PA/lateral chest demonstrates new lingula infiltrate/atelectasis and new right double lumen dialysis catheter. Stable minimal left midlung calcified pleural plaquing. Remaining heart, lungs, and bony thorax unremarkable. Comment: Lingula finding not reported by interpreting ER clinician. Telephone report given to Dr. Chatterjee in the ER at 0920 hrs. on January 04, 2019.
== END 2019-01-04 01:56 | disposition home or self-care (01) ==
LOC: ED 23:08
DX: R91.8 Other nonspecific abnormal finding of lung field (principal); R05 Cough; R03.0 Elevated blood-pressure reading, without diagnosis of hypertension
CPT/HCPCS: 71046; 99283

== ENCOUNTER 2019-11-12 18:53 | Emergency (ER) | payer MEDICARE, BC ==
[2019-11-12] MEDS ORDERED: TORAdol 30 mg Injection IM ONE (19:04)
--- NOTE | 2019-11-12 19:10 | ERPHSYRPT ---
- History of Present Illness Time Seen by Provider: 11/12/19 19:00 Source: patient, EMS Exam Limitations: no limitations Patient Subjective Stated Complaint: PT states "I am not sure what I did, My right hip really hurts." Triage Nursing Assessment: Pt presented alert and oriented X 3, skin pwd. Pt able to speak in clear full sentences pt in no apparent respiratory distress. Pt csm X 4 Physician History: 29 years old with history of psoriasis presented in the ER with chief complaint of right hip pain since she woke up this morning. Described this as a sharp shooting pain moderate to severe intensity, making her unable to bear weight. She has been limping. Relief with resting. Denies any swelling numbness tingling or weakness of right lower extremity. Denies any fall or trauma. She is able to move her knee and ankle/toes without any limitation. Allergies/Adverse Reactions: hydromorphone [From Dilaudid] Allergy (Verified 05/30/18 10:00) naproxen Allergy (Verified 05/30/18 10:00) sulfamethoxazole [From Bactrim] Allergy (Verified 10/19/17 10:20) trimethoprim [From Bactrim] Allergy (Verified 10/19/17 10:20) vancomycin Allergy (Verified 05/30/18 10:00) Home Medications: Alprazolam [Xanax] 0.5 mg PO BID 05/02/14 [History] Fluvoxamine Maleate 100 mg PO BID 05/02/14 [History] Levothyroxine Sodium 100 Mcg [Synthroid 100 Mcg] 137 mcg PO DAILY 05/02/14 [History] [place] Carbonate 300 mg [[place] Carbonate 300 MG] 150 mg PO BID 05/02/14 [History] Amlodipine Besylate 5 mg [Norvasc 5 mg] 5 mg PO DAILY 10/19/17 [History] Calcitriol [Rocaltrol] 0.5 mcg PO DAILY 10/19/17 [History] Ferric Citrate [Auryxia] 420 mg PO UD 10/19/17 [History] Ferric Citrate [Auryxia] 630 mg PO AC 10/19/17 [History] Hydrocodone/Acetaminophen [[place] 5-325 Tablet] 1 each PO BID PRN PRN 10/19/17 [History] Melatonin/Pyridoxine HCl (B6) [Melatonin 10 mg Tablet] 10 mg PO HS 10/19/17 [History] Ergocalciferol (Vitamin D2) [Vitamin D] 50,000 unit PO UD 05/30/18 [History] Albuterol Sulfate [Proair Hfa] 8.5 gm IH Q4H PRN PRN 09/29/18 [History] Carvedilol 12.5 mg [Coreg 12.5 mg] 12.5 mg PO BID 01/03/19 [History] Pantoprazole Sodium [Protonix] 40 mg PO DAILY 01/03/19 [History] Hx Tetanus, Diphtheria Vaccination/Date Given: No Hx Influenza Vaccination/Date Given: Yes Hx Pneumococcal Vaccination/Date Given: No Immunizations Up to Date: Yes Travel Risk - International Travel Have you traveled outside of the country in past 3 weeks: No - Coronavirus Screening Are you exhibiting any of the following symptoms?: No Close contact with a COVID-19 positive Pt in past 14-21 Days: No - Review of Systems Constitutional: No Symptoms Eyes: No Symptoms Ears, Nose, & Throat: No Symptoms Respiratory: No Symptoms Cardiac: No Symptoms Abdominal/Gastrointestinal: No Symptoms Genitourinary Symptoms: No Symptoms Musculoskeletal: Joint Pain Skin: No Symptoms Neurological: No Symptoms Psychological: No Symptoms Endocrine: No Symptoms Hematologic/Lymphatic: No Symptoms Immunological/Allergic: No Symptoms - Past Medical History Pertinent Past Medical History: Yes Neurological History: No Pertinent History ENT History: No Pertinent History Cardiac History: Hypertension, Other Respiratory History: No Pertinent History Endocrine Medical History: Hypothyroidism, Other Musculoskeletal History: Fibromyalgia, Rheumatoid Arthritis GI Medical History: No Pertinent History History: Renal Disease Psycho-Social History: Anxiety, Attention Deficit Disorder, Bipolar, Depression Female Reproductive Disorders: No Pertinent History Other Medical History: ANXIETY, DEPRESSION, BIPOLAR, OCD. LEFT FISTULAR UPPER ARM FOR DIALYSIS. FRIDAY, FRIDAY, AND FRIDAY. - Past Surgical History Past Surgical History: Yes Neuro Surgical History: No Pertinent History Cardiac: Cardiac Catheterization Respiratory: No Pertinent History Gastrointestinal: No Pertinent History Genitourinary: Other Musculoskeletal: No Pertinent History Female Surgical History: No Pertinent History Other Surgical History: fistula placment left arm (does not work), dialysis cath rt subclavian, mirena placement, kidney biopsy - Social History Smoking Status: Former smoker How long have you smoked: 3 Exposure to second hand smoke: Yes Drug Use: none Patient Lives Alone: No - Female History Hx Last Menstrual Period: mirena Hx Now: No - Nursing Vital Signs Nursing Vital Signs: Initial Vital Signs Temperature 97.8 F 11/12/19 18:53 Pulse Rate 95 H 11/12/19 18:53 Respiratory Rate 11/12/19 18:53 Blood Pressure 109/76 11/12/19 18:53 O2 Sat by Pulse Oximetry 100 11/12/19 18:53 Pain Scale Pain Intensity 6 - Physical Exam General Appearance: no apparent distress Eyes, Ears, Nose, Throat Exam: normal ENT inspection Neck Exam: normal inspection, supple, full range of motion Cardiovascular/Respiratory Exam: chest non-tender, regular rate/rhythm Gastrointestinal/Abdominal Exam: non-tender, soft, no organomegaly, No guarding, No tenderness Back Exam: normal inspection, normal range of motion, No CVA tenderness Hips Exam: right: pain, soft tissue tenderness, bilateral: non-tender, normal inspection, normal range of motion, no evidence of injury, bone tenderness Legs Exam: bilateral leg: non-tender, normal inspection, normal range of motion, no evidence of injury Knees Exam: bilateral knee: non-tender, normal inspection, normal range of motion, no evidence of injury Ankle Exam: bilateral ankle: non-tender, normal inspection, normal range of motion, no evidence of injury Foot Exam: bilateral foot: non-tender, normal inspection, normal range of motion, no evidence of injury Neuro/Tendon Exam: normal sensation, normal motor functions, normal tendon functions Mental Status Exam: alert, oriented x 3, cooperative Skin Exam: normal color SpO2 Interpretation: normal SpO2: 100 O2 Delivery: Room Air Ordered Tests: Active Orders 24 hr Category Date Time Status HIP UNI (2V) INCL PEL IF DONE Stat Exams 11/12/19 21:16 Completed Medication Summary Discontinued Medications Generic Name Dose Route Start Last Admin Trade Name Freq PRN Reason Stop Dose Admin Ketorolac Tromethamine 30 mg 11/12/19 19:04 11/12/19 19:42 Toradol 30 Mg Injection IM 11/12/19 19:05 30 mg STAT ONE Administration Ketorolac Tromethamine Confirm 11/12/19 19:41 Toradol 30 Mg Injection Administered 11/12/19 19:42 Dose 30 mg .ROUTE .STK-MED ONE Oxycodone/Acetaminophen 2 tab 11/12/19 20:57 11/12/19 21:02 Percocet Tablet 5/325mg PO 11/12/19 20:58 2 tab STAT ONE Administration Oxycodone/Acetaminophen Confirm 11/12/19 21:02 Percocet Tablet 5/325mg Administered 11/12/19 21:03 Dose 2 tab .ROUTE .STK-MED ONE - Progress Progress: improved Progress Note: 11/12/19 She is given Toradol for pain. Obtain x-rays which are negative for any obvious fracture dislocation reviewed by me. Official report is pending. Patient is feeling better on reevaluation. She has no signs of cellulitis. No swelling or calf tenderness or thigh tenderness suggesting DVT. I believe patient has hip strain, will continue with NSAIDs and muscle relaxant to go home. Discussed signs symptoms of worsening needing return to ER which she seemed understanding. Stable for discharge. - Departure Departure Disposition: Home Clinical Impression: Hip strain Qualifiers: Encounter type: initial encounter Laterality: right Qualified Code(s): S76.011A - Strain of muscle, fascia and tendon of right hip, initial encounter Condition: Stable Critical Care Time: No Referrals: TOSHIA ESPINOZA MD [Primary Care Provider] - Follow Up with PCP/3 days Instructions: Lower Extremity Muscle Strain (DC), Hip Pain (DC) Additional Instructions: Tylenol/ibuprofen as needed along with muscle relaxants. Follow-up with primary care for reevaluation. Return to ER for any worsening. Prescriptions: Methocarbamol [Robaxin-750] 750 mg PO TID 10 Days #30 tablet
[2019-11-12] MEDS ORDERED: TORAdol 30 mg Injection ONE (19:41)
[2019-11-12] MEDS ORDERED: PERCOCET TABLET 5/325MG PO ONE (20:57)
[2019-11-12] MEDS ORDERED: PERCOCET TABLET 5/325MG ONE (21:02)
[2019-11-12 21:20] VITALS: PULSE 85
--- NOTE | 2019-11-12 21:48 | XRAY ---
Indication: Pain. No known injury. Comparison: None 2 view right hip demonstrates IUD in situ. No other bony, articular, or soft tissue abnormalities.
[2019-11-12 22:10] VITALS: BP 116/58; O2SAT 99
== END 2019-11-12 22:09 | disposition home or self-care (01) ==
LOC: ED 18:53
DX: S76.011A Strain of muscle, fascia and tendon of right hip, initial encounter (principal); M25.551 Pain in right hip; Z79.899 Other long term (current) drug therapy; Z79.891 Long term (current) use of opiate analgesic; I10 Essential (primary) hypertension
CPT/HCPCS: 73502; 96372; 99284; J1885; A9270-GY

== ENCOUNTER 2020-04-15 09:18 | Emergency (ER) | payer MEDICARE, BC ==
[2020-04-15] MEDS ORDERED: Sodium Chloride 0.9% 1000 ML 1,000 ML IV STA (09:30)
[2020-04-15] MEDS ORDERED: Zofran 4 MG/2 ML VIAL IV ONE ×2 (09:30→10:34)
[2020-04-15] MEDS ORDERED: Sodium Chloride 0.9% 1000 ML 1,000 ML ONE (09:36)
[2020-04-15] MEDS ORDERED: Zofran 4 MG/2 ML VIAL ONE ×2 (09:36→10:36)
--- NOTE | 2020-04-15 09:38 | ERPHSYRPT ---
- History of Present Illness Time Seen by Provider: 04/15/20 09:35 Historian: patient, family Exam Limitations: no limitations Patient Subjective Stated Complaint: Pt states "I am a dilysis pt. I was due for dialysis today but I hurt to bad to go. The pain started in my back on the left last night and now it is all in my abdomen on the bottom." Triage Nursing Assessment: Pt presented alert and oriented X 3, skin pwd Pt ambulates with an upright steady gait, able to speak in clear full sentences. pt in no apparent respiratory distress. Physician History: pt developed left flank pain/abd pain last pm, is on regular dialysis for autoimmune kidney dx. has N/V also. no trauma, no shortness of breath. Timing/Duration: yesterday Activities at Onset: none Quality: cramping, sharpness, stabbing Abdominal Pain Onset Location: LUQ, generalized abdomen Pain Radiation: flank Severity of Pain-Max: moderate Severity of Pain-Current: moderate Modifying Factors: Improves With: nothing Associated Symptoms: back, nausea, vomiting Previous symptoms: no prior history Allergies/Adverse Reactions: heparin Allergy (Severe, Verified 04/15/20 09:32) antibodies hydromorphone [From Dilaudid] Allergy (Verified 05/30/18 10:00) naproxen Allergy (Verified 05/30/18 10:00) sulfamethoxazole [From Bactrim] Allergy (Verified 10/19/17 10:20) trimethoprim [From Bactrim] Allergy (Verified 10/19/17 10:20) vancomycin Allergy (Verified 05/30/18 10:00) Home Medications: Alprazolam [Xanax] 0.5 mg PO BID 05/02/14 [History] Fluvoxamine Maleate 100 mg PO BID 05/02/14 [History] Levothyroxine Sodium 100 Mcg [Synthroid 100 Mcg] 137 mcg PO DAILY 05/02/14 [History] [place] Carbonate 300 mg [[place] Carbonate 300 MG] 150 mg PO BID 05/02/14 [History] Calcitriol [Rocaltrol] 0.5 mcg PO DAILY 10/19/17 [History] Ferric Citrate [Auryxia] 420 mg PO UD 10/19/17 [History] Ferric Citrate [Auryxia] 630 mg PO AC 10/19/17 [History] Hydrocodone/Acetaminophen [[place] 5-325 Tablet] 1 each PO BID PRN PRN 10/19/17 [History] Melatonin/Pyridoxine HCl (B6) [Melatonin 10 mg Tablet] 10 mg PO HS 10/19/17 [History] Albuterol Sulfate [Proair Hfa] 8.5 gm IH Q4H PRN PRN 09/29/18 [History] Pantoprazole Sodium [Protonix] 40 mg PO DAILY 01/03/19 [History] Carvedilol 12.5 mg [Coreg 12.5 mg] 12.5 mg PO DAILY 04/15/20 [History] Hx Tetanus, Diphtheria Vaccination/Date Given: Yes Hx Influenza Vaccination/Date Given: Yes Hx Pneumococcal Vaccination/Date Given: No Immunizations Up to Date: Yes Travel Risk - International Travel Have you traveled outside of the country in past 3 weeks: No - Coronavirus Screening Are you exhibiting any of the following symptoms?: No Close contact with a COVID-19 positive Pt in past 14-21 Days: No - Review of Systems Constitutional: No Fever, No Chills Eyes: No Symptoms Ears, Nose, & Throat: No Symptoms Respiratory: No Cough, No Dyspnea Cardiac: No Chest Pain, No Edema, No Syncope Abdominal/Gastrointestinal: Abdominal Pain, Nausea, Vomiting, No Diarrhea Genitourinary Symptoms: No Dysuria Musculoskeletal: Back Pain, No Neck Pain Skin: No Rash Neurological: No Dizziness, No Focal Weakness, No Sensory Changes Psychological: No Symptoms Endocrine: No Symptoms All Other Systems: Reviewed and Negative - Past Medical History Pertinent Past Medical History: Yes Neurological History: No Pertinent History ENT History: No Pertinent History Cardiac History: Hypertension, Other Respiratory History: No Pertinent History Endocrine Medical History: Hypothyroidism, Other Musculoskeletal History: Fibromyalgia, Rheumatoid Arthritis GI Medical History: No Pertinent History History: Renal Disease Psycho-Social History: Anxiety, Attention Deficit Disorder, Bipolar, Depression Female Reproductive Disorders: No Pertinent History Other Medical History: ANXIETY, DEPRESSION, BIPOLAR, OCD. LEFT FISTULAR UPPER ARM FOR DIALYSIS. FRIDAY, FRIDAY, AND FRIDAY. - Past Surgical History Past Surgical History: Yes Neuro Surgical History: No Pertinent History Cardiac: Cardiac Catheterization Respiratory: No Pertinent History Gastrointestinal: No Pertinent History Genitourinary: Other Musculoskeletal: No Pertinent History Female Surgical History: No Pertinent History Other Surgical History: fistula placment left arm (does not work), dialysis cath rt subclavian, mirena placement, kidney biopsy. 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 - Social History Smoking Status: Former smoker How long have you smoked: 3 Exposure to second hand smoke: Yes Drug Use: none Patient Lives Alone: No - Female History Hx Last Menstrual Period: mirena Hx Now: No - Nursing Vital Signs Nursing Vital Signs: Initial Vital Signs Temperature 97.8 F 04/15/20 09:24 Pulse Rate 93 H 04/15/20 09:24 Respiratory Rate 20 04/15/20 09:24 Blood Pressure 149/92 04/15/20 09:24 O2 Sat by Pulse Oximetry 100 04/15/20 09:24 Pain Scale Pain Intensity 4 - Physical Exam General Appearance: no apparent distress, alert Eye Exam: PERRL/EOMI, eyes nml inspection Ears, Nose, Throat Exam: normal ENT inspection, pharynx normal, moist mucous membranes Neck Exam: normal inspection, non-tender, supple, full range of motion Respiratory Exam: normal breath sounds, lungs clear, No respiratory distress Cardiovascular Exam: regular rate/rhythm, normal heart sounds Gastrointestinal/Abdomen Exam: tenderness, guarding, No mass Pelvic Exam: deferred Rectal Exam: deferred Back Exam: normal inspection, normal range of motion, No CVA tenderness, No vertebral tenderness Extremity Exam: normal inspection, normal range of motion, pelvis stable Neurologic Exam: alert, oriented x 3, cooperative, normal mood/affect, nml cerebellar function, sensation nml, No motor deficits Skin Exam: normal color, warm, dry SpO2 Interpretation: normal SpO2: 100 O2 Delivery: Room Air - Course Nursing assessment & vital signs reviewed: Yes Ordered Tests: Active Orders 24 hr Category Date Time Status EKG-ER Only STAT Care 04/15/20 09:30 Active IV Insertion STAT Care 04/15/20 09:30 Active ABDOMEN AND PELVIS W/0 CONTRAS [CT] Stat Exams 04/15/20 09:31 Taken PELVIS TRANS VAGINAL [US] Stat Exams 04/15/20 10:28 Ordered AMYLASE Stat Lab 04/15/20 09:35 Completed CBC W DIFF Stat Lab 04/15/20 09:35 Completed CMP Stat Lab 04/15/20 09:35 Completed HCG QUALITATIVE,SERUM Stat Lab 04/15/20 09:35 Completed LIPASE Stat Lab 04/15/20 09:35 Completed Lactic Acid Stat Lab 04/15/20 09:30 Completed TROPONIN Q3H Lab 04/15/20 09:35 Completed TROPONIN Q3H Lab 04/15/20 12:45 Ordered TROPONIN Q3H Lab 04/15/20 15:45 Ordered TROPONIN Q3H Lab 04/15/20 18:45 Ordered TROPONIN Q3H Lab 04/15/20 21:45 Ordered Medication Summary Discontinued Medications Generic Name Dose Route Start Last Admin Trade Name Freq PRN Reason Stop Dose Admin Diphenhydramine HCl 25 mg 04/15/20 10:34 04/15/20 10:40 Benadryl 50 Mg/Ml IV 04/15/20 10:35 25 mg STAT ONE Administration Diphenhydramine HCl Confirm 04/15/20 10:36 Benadryl 50 Mg/Ml Administered 04/15/20 10:37 Dose 50 mg .ROUTE .STK-MED ONE Fentanyl Citrate 50 mcg 04/15/20 10:33 04/15/20 10:40 Sublimaze 100 Mcg/2 Ml IV 04/15/20 10:34 50 mcg STAT ONE Administration Fentanyl Citrate Confirm 04/15/20 10:40 Sublimaze 100 Mcg/2 Ml Administered 04/15/20 10:41 Dose 100 mcg .ROUTE .STK-MED ONE Fentanyl Citrate Confirm 04/15/20 11:10 Sublimaze 100 Mcg/2 Ml Administered 04/15/20 11:11 Dose 100 mcg .ROUTE .STK-MED ONE Fentanyl Citrate 50 mcg 04/15/20 11:29 04/15/20 11:15 Sublimaze 100 Mcg/2 Ml IV 04/15/20 11:30 50 mcg STAT ONE Administration Sodium Chloride 1,000 mls @ 999 mls/hr 04/15/20 09:30 04/15/20 11:02 Sodium Chloride 0.9% 1000 Ml IV 04/15/20 10:30 Infused .Q1H1M STA Infusion Sodium Chloride Confirm 04/15/20 09:36 Sodium Chloride 0.9% 1000 Ml Administered 04/15/20 09:37 Dose 1,000 mls @ ud .ROUTE .STK-MED ONE Ondansetron HCl 4 mg 04/15/20 09:30 04/15/20 09:43 Zofran 4 Mg/2 Ml Vial IV 04/15/20 09:31 4 mg STAT ONE Administration Ondansetron HCl Confirm 04/15/20 09:36 Zofran 4 Mg/2 Ml Vial Administered 04/15/20 09:37 Dose 4 mg .ROUTE .STK-MED ONE Ondansetron HCl 4 mg 04/15/20 10:34 04/15/20 10:39 Zofran 4 Mg/2 Ml Vial IV 04/15/20 10:35 4 mg STAT ONE Administration Ondansetron HCl Confirm 04/15/20 10:36 Zofran 4 Mg/2 Ml Vial Administered 04/15/20 10:37 Dose 4 mg .ROUTE .STK-MED ONE Lab/Rad Data: Laboratory Result Diagrams 04/15/20 09:35 04/15/20 09:35 Laboratory Results 04/15/20 04/15/20 04/15/20 Range/Units 09:35 09:35 09:35 WBC (4.0-10.5) K/mm3 RBC (4.1-5.4) M/mm3 Hgb (12.0-16.0) gm/dl Hct (35-47) % MCV (78-100) fl MCH (26-32) pg MCHC (32-36) g/dl RDW (11.5-14.0) % Plt Count (150-450) K/mm3 MPV (7.5-11.0) fl Gran % (36.0-66.0) % Eos # (Auto) (0-0.5) Absolute Lymphs (auto) (1.0-4.6) Absolute Monos (auto) (0.0-1.3) Lymphocytes % (24.0-44.0) % Monocytes % (0.0-12.0) % Eosinophils % (0.00-5.0) % Basophils % (0.0-0.4) % Absolute Granulocytes (1.4-6.9) Basophils # (0-0.4) Sodium 134 L (137-145) mmol/L Potassium 5.6 H (3.5-5.1) mmol/L Chloride 92 L (98-107) mmol/L Carbon Dioxide 29 (22-30) mmol/L Anion Gap 18.7 H (5-15) MEQ/L BUN 68 H (7-17) mg/dL Creatinine 11.55 H (0.52-1.04) mg/dL Estimated GFR 4.1 ML/MIN Glucose 89 (74-106) mg/dL Lactic Acid (0.4-2.0) Calcium 9.0 (8.4-10.2) mg/dL Total Bilirubin 0.50 (0.2-1.3) mg/dL AST 20 (14-36) U/L ALT 13 (0-35) U/L Alkaline Phosphatase 363 H (38-126) U/L Troponin I 0.017 (0.000-0.034) ng/mL Serum Total Protein 7.9 (6.3-8.2) g/dL Albumin 4.4 (3.5-5.0) g/dL Amylase 110 (30-110) U/L Lipase 155 (23-300) U/L Serum , Qual NEGATIVE (Negative) 04/15/20 04/15/20 Range/Units 09:35 09:30 WBC 8.4 (4.0-10.5) K/mm3 RBC 2.37 L (4.1-5.4) M/mm3 Hgb 7.8 L (12.0-16.0) gm/dl Hct 25.2 L (35-47) % MCV 106.3 H (78-100) fl MCH 32.9 H (26-32) pg MCHC 31.0 L (32-36) g/dl RDW 13.2 (11.5-14.0) % Plt Count 257 (150-450) K/mm3 MPV 9.8 (7.5-11.0) fl Gran % 77.2 H (36.0-66.0) % Eos # (Auto) 0.16 (0-0.5) Absolute Lymphs (auto) 1.28 (1.0-4.6) Absolute Monos (auto) 0.46 (0.0-1.3) Lymphocytes % 15.2 L (24.0-44.0) % Monocytes % 5.5 (0.0-12.0) % Eosinophils % 1.9 (0.00-5.0) % Basophils % 0.2 (0.0-0.4) % Absolute Granulocytes 6.52 (1.4-6.9) Basophils # 0.02 (0-0.4) Sodium (137-145) mmol/L Potassium (3.5-5.1) mmol/L Chloride (98-107) mmol/L Carbon Dioxide (22-30) mmol/L Anion Gap (5-15) MEQ/L BUN (7-17) mg/dL Creatinine (0.52-1.04) mg/dL Estimated GFR ML/MIN Glucose (74-106) mg/dL Lactic Acid 1.5 (0.4-2.0) Calcium (8.4-10.2) mg/dL Total Bilirubin (0.2-1.3) mg/dL AST (14-36) U/L ALT (0-35) U/L Alkaline Phosphatase (38-126) U/L Troponin I (0.000-0.034) ng/mL Serum Total Protein (6.3-8.2) g/dL Albumin (3.5-5.0) g/dL Amylase (30-110) U/L Lipase (23-300) U/L Serum , Qual (Negative) - Progress Progress: improved, re-examined Progress Note: 04/15/20 12:16 pt improved with meds; discussed admission /transfer, and that cyst requires further w/u by PCP/NUTRITIONAL SERVICES DIRECTOR, pt prefers outpt tx and to get dialysis today and will return in pain recurs after, or meantime. SHe is aware of limitations of testing performed and that there may be undetected pathology evolving and has the capacity to make this choice for outpt vs furhter tx in er/hosp and chooses after discussion of risks and benefits. Counseled pt/family regarding: lab results, diagnosis, need for follow-up, rad results - Departure Departure Disposition: Home Clinical Impression: Renal failure, Elevated blood pressure reading without diagnosis of hypertension, left adnexal cyst Condition: Good Critical Care Time: No Referrals: TOSHIA ESPINOZA MD [Primary Care Provider] - Instructions: Acute Abdomen (Belly Pain), Adult (DC), Ovarian Cyst (DC) Additional Instructions: Have Dialysis today; see your DrCapo for NUTRITIONAL SERVICES DIRECTOR referral/workup of left ovarian cyst/mass this week. Return meantime if not improving or other concerns, as there may be other conditions undetected or evolving. . followup anemia and elevated blood pressure with your
[2020-04-15 09:46] LABS: Absolute Neutrophil Ct (ANC) 6.52 (1.4-6.9); BASOPHIL % 0.2 % (0.0-0.4); Basophil (Absolute #) 0.02 (0-0.4); Eosinophil % 1.9 % (0.00-5.0); Eosinophil (Absolute #) 0.16 (0-0.5); Hematocrit 25.2 % (35-47); Hemoglobin 7.8 gm/dl (12.0-16.0); Lymphocyte (Absolute #) 1.28 (1.0-4.6); Lymphocytes % 15.2 % (24.0-44.0); Mean Cell Volume 106.3 fl (78-100); Mean Corpuscular Hemoglobin 32.9 pg (26-32); Mean Platelet Volume 9.8 fl (7.5-11.0); Monocyte (Absolute #) 0.46 (0.0-1.3); Monocytes % 5.5 % (0.0-12.0); Neutrophil % 77.2 % (36.0-66.0); Platelet Count 257 K/mm3 (150-450); Red Blood Count 2.37 M/mm3 (4.1-5.4); Red Cell Distribution Width 13.2 % (11.5-14.0); White Blood Count 8.4 K/mm3 (4.0-10.5)
[2020-04-15 10:01] LABS: ALBUMIN 4.4 g/dL (3.5-5.0); ANION GAP 18.7 MEQ/L (5-15); BILIRUBIN,TOTAL 0.5 mg/dL (0.2-1.3); Creatinine 1 11.55 mg/dL (0.52-1.04); EST GLOMERULAR FILTRATION RATE 4.1 ML/MIN; Potassium 5.6 mmol/L (3.5-5.1); Total Protein 7.9 g/dL (6.3-8.2)
[2020-04-15] MEDS ORDERED: SUBLIMAZE 100 MCG/2 ML IV ONE ×3 (10:33→12:15)
[2020-04-15] MEDS ORDERED: BENADRYL 50 MG/ML IV ONE (10:34)
[2020-04-15] MEDS ORDERED: BENADRYL 50 MG/ML ONE (10:36)
[2020-04-15] MEDS ORDERED: SUBLIMAZE 100 MCG/2 ML ONE ×3 (10:40→12:30)
[2020-04-15 12:41] VITALS: BP 150/85; PULSE 84; O2SAT 96
--- NOTE | 2020-04-15 18:38 | XRAY ---
Indication: Left flank pain. Multiple contiguous axial images obtained through the abdomen and pelvis without contrast. Comparison: None. Lung bases are clear. Heart is not enlarged. Noncontrasted stomach and bowel loops appear nonobstructed. Normal appendix. 4 cm left ovary cyst. Uterus demonstrates IUD in situ. No free fluid/air. Both kidneys are atrophic with nonobstructing microcalculi. Spleen is enlarged measuring 13.9 cm. Remaining liver, gallbladder, pancreas, spleen, adrenal glands, kidneys, ureters, bladder, uterus, and aorta are unremarkable for noncontrast exam. Osseous structures intact with diffuse osteosclerosis. No ventral or inguinal hernias. Impression: 1. 4 cm left ovary cyst. Pelvic sonogram may yield further information. 2. Incidental bilateral renal atrophy, nonobstructing bilateral renal microcalculi, and splenomegaly. 3. Diffuse bony sclerosis presumed due to renal osteodystrophy. Comment: Preliminary interpretation was made by [facility]. No critical discrepancy.
--- NOTE | 2020-04-15 18:40 | XRAY ---
Indication: Left pelvic pain. Two-dimensional transabdominal pelvic sonogram performed. Comparison: None Uterus anteverted measuring 5.5 x 3.3 x 3.7 cm. No focal solid/cystic uterine mass. IUD with tip at the level of the fundus. Right ovary measures 3.3 x 2.2 x 2.0 cm and the left measures 5.5 x 3.9 x 4.0 cm. Left ovary demonstrates a 3.2 x 1.9 x 2.4 cm irregular complex echogenic cyst. No suspicious solid adnexal masses or free fluid. Impression: 3.2 cm complex left ovary cyst better evaluated with transvaginal sonogram if patient is able. Incidental IUD in situ. Comment: Preliminary report was given.
== END 2020-04-15 12:42 | disposition home or self-care (01) ==
LOC: ED 09:18
DX: N19 Unspecified kidney failure (principal); R03.0 Elevated blood-pressure reading, without diagnosis of hypertension; N83.202 Unspecified ovarian cyst, left side
CPT/HCPCS: 36000; 36415; 74176; 76830; 80053; 81025; 82150; 83605; 83690; 84484; 85025; 93005; 96360; 96374; 96375; 96376; 99285; J1200; J2405; J3010

== ENCOUNTER 2020-06-07 12:36 | Emergency (ER) | payer MEDICARE, BC ==
[2020-06-07] MEDS ORDERED: Zofran 4 MG/2 ML VIAL IV ONE (13:01)
[2020-06-07] MEDS ORDERED: MORPHINE SULFATE 4 MG INJ IV ONE (13:01)
[2020-06-07] MEDS ORDERED: Zofran 4 MG/2 ML VIAL ONE (13:29)
[2020-06-07] MEDS ORDERED: MORPHINE SULFATE 4 MG INJ ONE (13:30)
[2020-06-07 13:38] LABS: Absolute Neutrophil Ct (ANC) 4.15 (1.4-6.9); BASOPHIL % 0.2 % (0.0-0.4); Basophil (Absolute #) 0.01 (0-0.4); Eosinophil % 3.5 % (0.00-5.0); Eosinophil (Absolute #) 0.19 (0-0.5); Hematocrit 34.9 % (35-47); Hemoglobin 10.4 gm/dl (12.0-16.0); Lymphocyte (Absolute #) 0.85 (1.0-4.6); Lymphocytes % 15.5 % (24.0-44.0); Mean Cell Volume 104.5 fl (78-100); Mean Corpuscular Hemoglobin 31.1 pg (26-32); Mean Corpuscular Hgb Concent. 29.8 g/dl (32-36); Mean Platelet Volume 10.3 fl (7.5-11.0); Monocyte (Absolute #) 0.29 (0.0-1.3); Monocytes % 5.3 % (0.0-12.0); Neutrophil % 75.5 % (36.0-66.0); Platelet Count 273 K/mm3 (150-450); Red Blood Count 3.34 M/mm3 (4.1-5.4); Red Cell Distribution Width 13.5 % (11.5-14.0); White Blood Count 5.5 K/mm3 (4.0-10.5)
[2020-06-07 14:00] VITALS: O2SAT 98
--- NOTE | 2020-06-07 14:05 | XRAY ---
Indication: Left lower quadrant pain. History left ovary cyst. Two-dimensional transvaginal pelvic sonogram performed. Comparison: April 15, 2020. Uterus again anteverted measuring 5.9 x 2.7 x 3.0 cm. Lower uterine segment demonstrates a new 3 mm nabothian cyst. Stable IUD with tip at the level of the fundus. Right ovary measures 3.2 x 1.9 x 2.9 cm and the left measures 4.7 x 3.6 x 4.7 cm. Normal follicular cysts and perfusion bilaterally. Previous complex left ovary cyst grossly unchanged measuring 3.4 x 2.8 x 2.2 cm. No suspicious solid adnexal mass or free fluid. Impression: New tiny nabothian cyst. Grossly stable complex left ovary cyst and IUD in situ.
--- NOTE | 2020-06-07 14:07 | ERPHSYRPT ---
- History of Present Illness Time Seen by Provider: 06/07/20 12:42 Historian: patient Exam Limitations: no limitations Patient Subjective Stated Complaint: PT sates "I have an ovarian cyst and I think it is causeing me pain again. I tried to take a norco but it did not he lp." Triage Nursing Assessment: PT presented alert and oriented X 3, skin pwd pt ambulates with an upright steady gait, able to speak in clear full sentences. pt is dialysis pt. Physician History: 29 years old female with history of end-stage renal disease on dialysis. Patient was recently on peritoneal dialysis and PD catheter got infected which was removed and currently on antibiotics, going for hemodialysis presented in the ER with left lower pelvic pain gradually worsening since last night, moderate intensity, sharp in nature without any associated vaginal bleeding or discharge. Patient reports having similar symptoms around Nicholas time and had a ovarian cyst in the left. Denies any associated nausea or vomiting. Denies any fever or chills. She denies any increasing discharge from PD catheter removal site. Timing/Duration: yesterday, gradual onset, worse Activities at Onset: rest Quality: sharpness Abdominal Pain Onset Location: other (Left pelvis) Pain Radiation: no radiation Severity of Pain-Max: moderate Severity of Pain-Current: moderate Modifying Factors: Worsens With: movement, palpation Associated Symptoms: denies symptoms Previous symptoms: same symptoms as today Allergies/Adverse Reactions: heparin Allergy (Severe, Verified 04/15/20 09:32) antibodies hydromorphone [From Dilaudid] Allergy (Verified 05/30/18 10:00) naproxen Allergy (Verified 05/30/18 10:00) sulfamethoxazole [From Bactrim] Allergy (Verified 10/19/17 10:20) trimethoprim [From Bactrim] Allergy (Verified 10/19/17 10:20) vancomycin Allergy (Verified 05/30/18 10:00) Home Medications: Alprazolam [Xanax] 0.5 mg PO BID 05/02/14 [History] Fluvoxamine Maleate 100 mg PO BID 05/02/14 [History] Levothyroxine Sodium 100 Mcg [Synthroid 100 Mcg] 137 mcg PO DAILY 05/02/14 [History] [place] Carbonate 300 mg [[place] Carbonate 300 MG] 150 mg PO BID 05/02/14 [History] Ferric Citrate [Auryxia] 420 mg PO UD 10/19/17 [History] Ferric Citrate [Auryxia] 630 mg PO AC 10/19/17 [History] Hydrocodone/Acetaminophen [[place] 5-325 Tablet] 1 each PO BID PRN PRN 10/19/17 [History] Melatonin/Pyridoxine HCl (B6) [Melatonin 10 mg Tablet] 10 mg PO HS 10/19/17 [History] calcitrioL [Rocaltrol] 0.5 mcg PO DAILY 10/19/17 [History] Albuterol Sulfate [Proair Hfa] 8.5 gm IH Q4H PRN PRN 09/29/18 [History] Pantoprazole Sodium [Protonix] 40 mg PO DAILY 01/03/19 [History] Carvedilol 12.5 mg [Coreg 12.5 mg] 12.5 mg PO DAILY 04/15/20 [History] Doxycycline Hyclate 100 mg [Vibramycin 100 mg] 100 mg IV BID 06/07/20 [History] Hx Tetanus, Diphtheria Vaccination/Date Given: Yes Hx Influenza Vaccination/Date Given: Yes Hx Pneumococcal Vaccination/Date Given: No Immunizations Up to Date: Yes Travel Risk - International Travel Have you traveled outside of the country in past 3 weeks: No - Coronavirus Screening Are you exhibiting any of the following symptoms?: No Close contact with a COVID-19 positive Pt in past 14-21 Days: No - Review of Systems Constitutional: No Symptoms Eyes: No Symptoms Ears, Nose, & Throat: No Symptoms Respiratory: No Symptoms Cardiac: No Symptoms Abdominal/Gastrointestinal: Abdominal Pain Genitourinary Symptoms: No Symptoms Musculoskeletal: No Symptoms Skin: No Symptoms Neurological: No Symptoms Psychological: No Symptoms Endocrine: No Symptoms Hematologic/Lymphatic: No Symptoms Immunological/Allergic: No Symptoms - Past Medical History Pertinent Past Medical History: Yes Neurological History: No Pertinent History ENT History: No Pertinent History Cardiac History: Hypertension, Other Respiratory History: No Pertinent History Endocrine Medical History: Hypothyroidism, Other Musculoskeletal History: Fibromyalgia, Rheumatoid Arthritis GI Medical History: No Pertinent History History: Renal Disease Psycho-Social History: Anxiety, Attention Deficit Disorder, Bipolar, Depression Female Reproductive Disorders: No Pertinent History Other Medical History: ANXIETY, DEPRESSION, BIPOLAR, OCD. LEFT FISTULAR UPPER ARM FOR DIALYSIS. FRIDAY, FRIDAY, AND FRIDAY. - Past Surgical History Past Surgical History: Yes Neuro Surgical History: No Pertinent History Cardiac: Cardiac Catheterization Respiratory: No Pertinent History Gastrointestinal: No Pertinent History Genitourinary: Other Musculoskeletal: No Pertinent History Female Surgical History: No Pertinent History Other Surgical History: fistula placment left arm (does not work), dialysis cath rt subclavian, mirena placement, kidney biopsy. 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 pd catheter removed - Social History Smoking Status: Former smoker How long have you smoked: 3 Exposure to second hand smoke: Yes Drug Use: none Patient Lives Alone: No - Female History Hx Last Menstrual Period: mirena Hx Now: No - Nursing Vital Signs Nursing Vital Signs: Initial Vital Signs Temperature 97.8 F 06/07/20 12:40 Pulse Rate 78 06/07/20 12:40 Respiratory Rate 18 06/07/20 12:40 Blood Pressure 135/90 06/07/20 12:40 O2 Sat by Pulse Oximetry 99 06/07/20 12:40 Pain Scale Pain Intensity 5 - Physical Exam General Appearance: no apparent distress, alert Eye Exam: eyes nml inspection Ears, Nose, Throat Exam: normal ENT inspection, pharynx normal Neck Exam: normal inspection, non-tender, supple, full range of motion Respiratory Exam: normal breath sounds, lungs clear Cardiovascular Exam: regular rate/rhythm, normal heart sounds Gastrointestinal/Abdomen Exam: soft, normal bowel sounds, tenderness (Left lower quadrant/pelvic area), other (PD catheter removal site minimal erythema, minimal discharge, packing in place.) Neurologic Exam: alert, oriented x 3, cooperative Skin Exam: normal color SpO2 Interpretation: normal SpO2: 98 Ordered Tests: Active Orders 24 hr Category Date Time Status IV Insertion STAT Care 06/07/20 13:01 Active PELVIS TRANS VAGINAL [US] Stat Exams 06/07/20 13:02 Completed BLOOD CULTURE Stat Lab 06/07/20 13:30 Received CBC W DIFF Stat Lab 06/07/20 13:20 Completed CMP Stat Lab 06/07/20 13:20 Completed HCG QUALITATIVE,SERUM Stat Lab 06/07/20 14:01 Completed Lactic Acid Stat Lab 06/07/20 13:35 Completed Medication Summary Discontinued Medications Generic Name Dose Route Start Last Admin Trade Name Freq PRN Reason Stop Dose Admin Fentanyl Citrate 50 mcg 06/07/20 15:09 06/07/20 15:15 Sublimaze 100 Mcg/2 Ml IV 06/07/20 15:10 50 mcg STAT ONE Administration Fentanyl Citrate Confirm 06/07/20 15:14 Sublimaze 100 Mcg/2 Ml Administered 06/07/20 15:15 Dose 100 mcg .ROUTE .STK-MED ONE Morphine Sulfate 4 mg 06/07/20 13:01 06/07/20 13:34 Morphine Sulfate 4 Mg Inj IV 06/07/20 13:02 4 mg STAT ONE Administration Morphine Sulfate Confirm 06/07/20 13:30 Morphine Sulfate 4 Mg Inj Administered 06/07/20 13:31 Dose 4 mg .ROUTE .STK-MED ONE Ondansetron HCl 4 mg 06/07/20 13:01 06/07/20 13:31 Zofran 4 Mg/2 Ml Vial IV 06/07/20 13:02 4 mg STAT ONE Administration Ondansetron HCl Confirm 06/07/20 13:29 Zofran 4 Mg/2 Ml Vial Administered 06/07/20 13:30 Dose 4 mg .ROUTE .STK-MED ONE Lab/Rad Data: Laboratory Result Diagrams 06/07/20 13:20 06/07/20 13:20 Laboratory Results 06/07/20 06/07/20 06/07/20 Range/Units 14:01 13:35 13:20 WBC (4.0-10.5) K/mm3 RBC (4.1-5.4) M/mm3 Hgb (12.0-16.0) gm/dl Hct (35-47) % MCV (78-100) fl MCH (26-32) pg MCHC (32-36) g/dl RDW (11.5-14.0) % Plt Count (150-450) K/mm3 MPV (7.5-11.0) fl Gran % (36.0-66.0) % Eos # (Auto) (0-0.5) Absolute Lymphs (auto) (1.0-4.6) Absolute Monos (auto) (0.0-1.3) Lymphocytes % (24.0-44.0) % Monocytes % (0.0-12.0) % Eosinophils % (0.00-5.0) % Basophils % (0.0-0.4) % Absolute Granulocytes (1.4-6.9) Basophils # (0-0.4) Sodium 135 L (137-145) mmol/L Potassium 4.1 (3.5-5.1) mmol/L Chloride 92 L (98-107) mmol/L Carbon Dioxide 32 H (22-30) mmol/L Anion Gap 15.0 (5-15) MEQ/L BUN 30 H (7-17) mg/dL Creatinine 9.60 H (0.52-1.04) mg/dL Estimated GFR 5.1 ML/MIN Glucose 88 (74-106) mg/dL Lactic Acid 1.7 (0.4-2.0) Calcium 9.0 (8.4-10.2) mg/dL Total Bilirubin 0.30 (0.2-1.3) mg/dL AST 22 (14-36) U/L ALT < 4 (0-35) U/L Alkaline Phosphatase 366 H (38-126) U/L Serum Total Protein 7.8 (6.3-8.2) g/dL Albumin 4.3 (3.5-5.0) g/dL Serum , Qual NEGATIVE (Negative) 06/07/20 Range/Units 13:20 WBC 5.5 (4.0-10.5) K/mm3 RBC 3.34 L (4.1-5.4) M/mm3 Hgb 10.4 L (12.0-16.0) gm/dl Hct 34.9 L (35-47) % MCV 104.5 H (78-100) fl MCH 31.1 (26-32) pg MCHC 29.8 L (32-36) g/dl RDW 13.5 (11.5-14.0) % Plt Count 273 (150-450) K/mm3 MPV 10.3 (7.5-11.0) fl Gran % 75.5 H (36.0-66.0) % Eos # (Auto) 0.19 (0-0.5) Absolute Lymphs (auto) 0.85 L (1.0-4.6) Absolute Monos (auto) 0.29 (0.0-1.3) Lymphocytes % 15.5 L (24.0-44.0) % Monocytes % 5.3 (0.0-12.0) % Eosinophils % 3.5 (0.00-5.0) % Basophils % 0.2 (0.0-0.4) % Absolute Granulocytes 4.15 (1.4-6.9) Basophils # 0.01 (0-0.4) Sodium (137-145) mmol/L Potassium (3.5-5.1) mmol/L Chloride (98-107) mmol/L Carbon Dioxide (22-30) mmol/L Anion Gap (5-15) MEQ/L BUN (7-17) mg/dL Creatinine (0.52-1.04) mg/dL Estimated GFR ML/MIN Glucose (74-106) mg/dL Lactic Acid (0.4-2.0) Calcium (8.4-10.2) mg/dL Total Bilirubin (0.2-1.3) mg/dL AST (14-36) U/L ALT (0-35) U/L Alkaline Phosphatase (38-126) U/L Serum Total Protein (6.3-8.2) g/dL Albumin (3.5-5.0) g/dL Serum , Qual (Negative) - Progress Progress: improved, re-examined Progress Note: 06/07/20 15:32 29 years old female with end-stage renal disease on dialysis is evaluated for left pelvic pain. She is given symptomatic treatment for pain, on reevaluation feeling better. She has normal white count, I chemistries consistent with ESRD and is due for dialysis tomorrow. She has a normal lactate. I did not appreciate any signs of infection at PD catheter removal site. She does have appointment with Dr. Isaac tomorrow for reevaluation. Pain is similar to previous when she had a ovarian cyst and I have repeated ultrasound which showed complex cyst left ovary grossly unchanged and no free fluid. She does not have any other peritoneal signs. I have advised her to follow-up with ELECTRICAL ELECTRONICS TECHNICIAN for reevaluation as her pain seems to be secondary to this complex cyst. At this point I do not think she needs any further work-up and is stable for discharge with outpatient follow-up. She does have pain medications at home which she is advised to take Counseled pt/family regarding: lab results, diagnosis, need for follow-up, rad results - Departure Departure Disposition: Home Clinical Impression: Complex cyst of left ovary Condition: Stable Critical Care Time: No Referrals: TOSHIA ESPINOZA MD [Primary Care Provider] - (1-2 days for reevaluation) QUIN BARRIGA DO [ACTIVE STAFF] - (1-2 days for reevaluation) Instructions: Acute Abdomen (Belly Pain), Adult (DC), Ovarian Cyst (DC) Additional Instructions: Take pain medications as needed. Follow-up with CHILD DEVELOPMENT TEACHER for reevaluation. Return to ER for intractable pain/vomiting/fever chills etc. Keep appointment with Dr. Isaac for tomorrow. Keep your dialysis appointment.
[2020-06-07 14:47] LABS: ALBUMIN 4.3 g/dL (3.5-5.0); ALKALINE PHOSPHATASE 366 U/L (38-126); BLOOD UREA NITROGEN 30 mg/dL (7-17); CHLORIDE 92 mmol/L (98-107); Carbon Dioxide 32 mmol/L (22-30); EST GLOMERULAR FILTRATION RATE 5.1 ML/MIN; Glucose 88 mg/dL (74-106); Potassium 4.1 mmol/L (3.5-5.1); SGOT/AST 22 U/L (14-36); SODIUM 135 mmol/L (137-145); Total Protein 7.8 g/dL (6.3-8.2)
[2020-06-07 14:57] LABS: SGPT/ALT < 4 U/L (0-35)
[2020-06-07] MEDS ORDERED: SUBLIMAZE 100 MCG/2 ML IV ONE (15:09)
[2020-06-07] MEDS ORDERED: SUBLIMAZE 100 MCG/2 ML ONE (15:14)
[2020-06-07 15:18] VITALS: BP 132/76; PULSE 80
== END 2020-06-07 15:55 | disposition home or self-care (01) ==
LOC: ED 12:36
DX: N83.292 Other ovarian cyst, left side (principal); N18.6 End stage renal disease; Z99.2 Dependence on renal dialysis; Z79.899 Other long term (current) drug therapy; Z79.891 Long term (current) use of opiate analgesic; I10 Essential (primary) hypertension
CPT/HCPCS: 36000; 36415; 76830; 80053; 81025; 83605; 85025; 87040; 96374; 96375; 99284; J2270; J2405; J3010

== ENCOUNTER 2020-10-26 09:33 | Emergency (ER) | payer MEDICARE, BC ==
[2020-10-26] MEDS ORDERED: BABY ASPIRIN 81 MG CHEW PO ONE (10:00)
[2020-10-26 10:05] LABS: Absolute Neutrophil Ct (ANC) 9.72 (1.4-6.9); BASOPHIL % 0.3 % (0.0-0.4); Basophil (Absolute #) 0.03 (0-0.4); Eosinophil % 1.9 % (0.00-5.0); Eosinophil (Absolute #) 0.23 (0-0.5); Hematocrit 38.1 % (35-47); Hemoglobin 11.4 gm/dl (12.0-16.0); Lymphocyte (Absolute #) 1.45 (1.0-4.6); Lymphocytes % 12.1 % (24.0-44.0); Mean Cell Volume 108.9 fl (78-100); Mean Corpuscular Hemoglobin 32.6 pg (26-32); Mean Corpuscular Hgb Concent. 29.9 g/dl (32-36); Mean Platelet Volume 9.7 fl (7.5-11.0); Monocyte (Absolute #) 0.53 (0.0-1.3); Monocytes % 4.4 % (0.0-12.0); Neutrophil % 81.3 % (36.0-66.0); Platelet Count 298 K/mm3 (150-450); Red Cell Distribution Width 14.4 % (11.5-14.0)
--- NOTE | 2020-10-26 10:08 | ERPHSYRPT ---
- History of Present Illness Time Seen by Provider: 10/26/20 09:59 Historian: patient Exam Limitations: no limitations Patient Subjective Stated Complaint: pt here for chest pain to [facility] chest since 2200 off and on, she states is on dialysis and had it 3 days in a row and now tobias chest pain Triage Nursing Assessment: pt alert, resp easy , face mask in place, resp easy, skin w/d/p. Physician History: 30 years old female with end-stage renal disease on dialysis who had fluid overload and has been going for dialysis 3rd consecutive day because of fluid overload and has almost 14 L removal done in 3 days presented in the ER with intermittent substernal dull aching mild to moderate intensity chest pain without any significant aggravating or relieving factors. Denies any associated shortness of breath but what she has at her baseline. Patient reports having similar symptoms in the past with consecutive dialysis but chest pain usually improves the next day but it was not going away at that is why she decided to report in the ER. Denies any fever chills or cough. Timing/Duration: yesterday, intermittent, gradual onset Activities at Onset: rest Quality: aching, dullness Location: substernal Chest Pain Radiation: no radiation Severity of Pain-Max: moderate Severity of Pain-Current: mild Modifying Factors: Improves With: nothing Associated Symptoms: denies symptoms Prior Chest Pain/Cardiac Workup: non-cardiac Nitro Today/Relief: no nitro taken today Aspirin Treatment Today: no aspirin today Allergies/Adverse Reactions: heparin Allergy (Severe, Verified 10/26/20 09:46) antibodies hydromorphone [From Dilaudid] Allergy (Verified 10/26/20 09:46) naproxen Allergy (Verified 10/26/20 09:46) sulfamethoxazole [From Bactrim] Allergy (Verified 10/26/20 09:46) trimethoprim [From Bactrim] Allergy (Verified 10/26/20 09:46) vancomycin Allergy (Verified 10/26/20 09:46) Home Medications: Alprazolam [Xanax] 0.5 mg PO BID 05/02/14 [History] Fluvoxamine Maleate 100 mg PO BID 05/02/14 [History] Levothyroxine Sodium 100 Mcg [Synthroid 100 Mcg] 137 mcg PO DAILY 05/02/14 [History] [place] Carbonate 300 mg [[place] Carbonate 300 MG] 150 mg PO BID 05/02/14 [History] Ferric Citrate [Auryxia] 420 mg PO UD 10/19/17 [History] Ferric Citrate [Auryxia] 630 mg PO AC 10/19/17 [History] Hydrocodone/Acetaminophen [[place] 5-325 Tablet] 1 each PO BID PRN PRN 10/19/17 [History] calcitrioL [Rocaltrol] 0.5 mcg PO DAILY 10/19/17 [History] Albuterol Sulfate [Proair Hfa] 8.5 gm IH Q4H PRN PRN 09/29/18 [History] Pantoprazole Sodium [Protonix] 40 mg PO DAILY 01/03/19 [History] Carvedilol 12.5 mg [Coreg 12.5 mg] 12.5 mg PO DAILY 04/15/20 [History] Hx Tetanus, Diphtheria Vaccination/Date Given: Yes Hx Influenza Vaccination/Date Given: No Hx Pneumococcal Vaccination/Date Given: No Immunizations Up to Date: Yes Travel Risk - International Travel Have you traveled outside of the country in past 3 weeks: No - Coronavirus Screening Are you exhibiting any of the following symptoms?: No - Vaccine Status Have you recieved a Covid-19 vaccination: No - Review of Systems Eyes: No Symptoms Ears, Nose, & Throat: No Symptoms Respiratory: Dyspnea Cardiac: Chest Pain Abdominal/Gastrointestinal: No Symptoms Genitourinary Symptoms: No Symptoms Musculoskeletal: No Symptoms Neurological: No Symptoms Psychological: Anxiety Endocrine: No Symptoms Hematologic/Lymphatic: No Symptoms Immunological/Allergic: No Symptoms - Past Medical History Pertinent Past Medical History: Yes Neurological History: No Pertinent History ENT History: No Pertinent History Cardiac History: Hypertension, Other Respiratory History: No Pertinent History Endocrine Medical History: Hypothyroidism, Other Musculoskeletal History: Fibromyalgia, Rheumatoid Arthritis GI Medical History: No Pertinent History History: Renal Disease Psycho-Social History: Anxiety, Attention Deficit Disorder, Bipolar, Depression Female Reproductive Disorders: No Pertinent History Other Medical History: ANXIETY, DEPRESSION, BIPOLAR, OCD. LEFT FISTULAR UPPER ARM FOR DIALYSIS. FRIDAY, FRIDAY, AND FRIDAY. - Past Surgical History Past Surgical History: Yes Neuro Surgical History: No Pertinent History Cardiac: Cardiac Catheterization Respiratory: No Pertinent History Gastrointestinal: No Pertinent History Genitourinary: Other Musculoskeletal: No Pertinent History Female Surgical History: No Pertinent History Other Surgical History: fistula placment left arm (does not work), dialysis cath rt subclavian, mirena placement, kidney biopsy. 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 pd cath eter removed - Social History Smoking Status: Former smoker How long have you smoked: 3 Exposure to second hand smoke: Yes Drug Use: none Patient Lives Alone: No - Female History Hx Last Menstrual Period: unsure Hx Now: (unkn) - Nursing Vital Signs Nursing Vital Signs: Initial Vital Signs Temperature 96.7 F 10/26/20 09:39 Pulse Rate 108 H 10/26/20 09:39 Respiratory Rate 16 10/26/20 09:39 Blood Pressure 93/74 10/26/20 09:39 O2 Sat by Pulse Oximetry 96 10/26/20 09:39 Pain Scale Pain Intensity 2 - Physical Exam General Appearance: no apparent distress, alert, anxiety Eye Exam: PERRL/EOMI, eyes nml inspection Ears, Nose, Throat Exam: normal ENT inspection, TMs normal, pharynx normal Neck Exam: normal inspection, non-tender, full range of motion, midline tenderness Respiratory Exam: normal breath sounds, lungs clear Cardiovascular Exam: regular rate/rhythm, normal heart sounds Gastrointestinal/Abdomen Exam: soft, normal bowel sounds, No tenderness Back Exam: normal inspection Extremity Exam: normal range of motion, pelvis stable Neurologic Exam: alert, oriented x 3, cooperative Skin Exam: normal color SpO2 Interpretation: normal SpO2: 96 O2 Delivery: Room Air - Course EKG Interpreted by Me: RATE (98), NORMAL AXIS, Q-wave (Inferior), Non-specific ST Changes, Other (T wave inversion in lateral leads) Ordered Tests: Active Orders 24 hr Category Date Time Status Vamp Marker STAT Care 10/26/20 10:00 Active EKG-ER Only STAT Care 10/26/20 10:00 Active IV Insertion STAT Care 10/26/20 10:00 Active CHEST 1 VIEW (PORTABLE) Stat Exams 10/26/20 10:00 Completed CBC W DIFF Stat Lab 10/26/20 10:05 Completed CMP Stat Lab 10/26/20 10:05 Completed HCG QUALITATIVE,SERUM Stat Lab 10/26/20 10:05 Completed NT PRO BNP Stat Lab 10/26/20 10:05 Completed TROPONIN Q3H Lab 10/26/20 10:05 Completed TROPONIN Q3H Lab 10/26/20 13:30 Received TROPONIN Q3H Lab 10/26/20 16:00 Ordered TROPONIN Q3H Lab 10/26/20 19:00 Ordered TROPONIN Q3H Lab 10/26/20 22:00 Ordered Medication Summary Discontinued Medications Generic Name Dose Route Start Last Admin Trade Name Channingq PRN Reason Stop Dose Admin Aspirin 324 mg 10/26/20 10:00 10/26/20 10:02 Baby Aspirin 81 Mg Chew PO 10/26/20 10:01 324 mg STAT ONE Administration Lab/Rad Data: Laboratory Result Diagrams 10/26/20 10:05 10/26/20 10:05 Laboratory Results 10/26/20 10/26/20 10/26/20 Range/Units 10:05 10:05 10:05 WBC 12.0 H (4.0-10.5) K/mm3 RBC 3.50 L (4.1-5.4) M/mm3 Hgb 11.4 L (12.0-16.0) gm/dl Hct 38.1 (35-47) % MCV 108.9 H (78-100) fl MCH 32.6 H (26-32) pg MCHC 29.9 L (32-36) g/dl RDW 14.4 H (11.5-14.0) % Plt Count 298 (150-450) K/mm3 MPV 9.7 (7.5-11.0) fl Gran % 81.3 H (36.0-66.0) % Eos # (Auto) 0.23 (0-0.5) Absolute Lymphs (auto) 1.45 (1.0-4.6) Absolute Monos (auto) 0.53 (0.0-1.3) Lymphocytes % 12.1 L (24.0-44.0) % Monocytes % 4.4 (0.0-12.0) % Eosinophils % 1.9 (0.00-5.0) % Basophils % 0.3 (0.0-0.4) % Absolute Granulocytes 9.72 H (1.4-6.9) Basophils # 0.03 (0-0.4) Sodium 138 (137-145) mmol/L Potassium 3.9 (3.5-5.1) mmol/L Chloride 92 L (98-107) mmol/L Carbon Dioxide 33 H (22-30) mmol/L Anion Gap 17.0 H (5-15) MEQ/L BUN 16 (7-17) mg/dL Creatinine 3.85 H (0.52-1.04) mg/dL Estimated GFR 14.6 ML/MIN Glucose 89 (74-106) mg/dL Calcium 9.9 (8.4-10.2) mg/dL Total Bilirubin 0.50 (0.2-1.3) mg/dL AST 29 (14-36) U/L ALT 13 (0-35) U/L Alkaline Phosphatase 561 H (38-126) U/L Troponin I (0.000-0.034) ng/mL NT-Pro-B Natriuret Pep 75527 H (0-450) pg/mL Serum Total Protein 8.9 H (6.3-8.2) g/dL Albumin 5.0 (3.5-5.0) g/dL Serum , Qual NEGATIVE (Negative) 10/26/20 Range/Units 10:05 WBC (4.0-10.5) K/mm3 RBC (4.1-5.4) M/mm3 Hgb (12.0-16.0) gm/dl Hct (35-47) % MCV (78-100) fl MCH (26-32) pg MCHC (32-36) g/dl RDW (11.5-14.0) % Plt Count (150-450) K/mm3 MPV (7.5-11.0) fl Gran % (36.0-66.0) % Eos # (Auto) (0-0.5) Absolute Lymphs (auto) (1.0-4.6) Absolute Monos (auto) (0.0-1.3) Lymphocytes % (24.0-44.0) % Monocytes % (0.0-12.0) % Eosinophils % (0.00-5.0) % Basophils % (0.0-0.4) % Absolute Granulocytes (1.4-6.9) Basophils # (0-0.4) Sodium (137-145) mmol/L Potassium (3.5-5.1) mmol/L Chloride (98-107) mmol/L Carbon Dioxide (22-30) mmol/L Anion Gap (5-15) MEQ/L BUN (7-17) mg/dL Creatinine (0.52-1.04) mg/dL Estimated GFR ML/MIN Glucose (74-106) mg/dL Calcium (8.4-10.2) mg/dL Total Bilirubin (0.2-1.3) mg/dL AST (14-36) U/L ALT (0-35) U/L Alkaline Phosphatase (38-126) U/L Troponin I < 0.012 (0.000-0.034) ng/mL NT-Pro-B Natriuret Pep (0-450) pg/mL Serum Total Protein (6.3-8.2) g/dL Albumin (3.5-5.0) g/dL Serum , Qual (Negative) - Progress Progress: improved Air Movement: good Progress Note: 10/26/20 15:01 30 years old on dialysis with third consecutive day today is evaluated for chest pain intermittent since yesterday. She is given aspirin, refused any other pain medications. EKG did not show any obvious ST elevation and negative troponins x2. Chest x-ray negative for any acute cardiopulmonary findings. Chemistries consistent with ESRD. Patient chest pain improved on reevaluation. I believe patient has more than 13 L removal done in the last 3 days and have some strain causing pain. Recommended supportive care and outpatient primary care/car diology follow-up. Discussed signs symptoms of worsening needing return to ER which he seems understanding. Stable for discharge. Blood Culture(s) Obtained: No Antibiotics given: No Counseled pt/family regarding: lab results, diagnosis, need for follow-up, rad results - Departure Departure Disposition: Home Clinical Impression: Atypical chest pain Condition: Stable Critical Care Time: No Referrals: TOSHIA ESPINOZA MD [ACTIVE STAFF] - (1-2 days for reevaluation) Instructions: Angina (DC), Chest Pain (DC) Additional Instructions: Take Tylenol as needed for pain. Follow-up with primary care and cardiology for reevaluation. Return to ER for worsening chest pain or if develop palpitations/shortness of breath etc.
[2020-10-26 10:37] LABS: BILIRUBIN,TOTAL 0.5 mg/dL (0.2-1.3); Calcium 9.9 mg/dL (8.4-10.2); Creatinine 1 3.85 mg/dL (0.52-1.04); EST GLOMERULAR FILTRATION RATE 14.6 ML/MIN; Potassium 3.9 mmol/L (3.5-5.1); Total Protein 8.9 g/dL (6.3-8.2)
--- NOTE | 2020-10-26 11:32 | XRAY ---
Indication: Chest pain. Comparison: January 10, 2020. Portable chest remains clear. Heart not enlarged. Bony thorax intact. Again partially visualized left upper arm stent graft. Impression: Continued nonacute chest.
[2020-10-26 14:30] VITALS: BP 93/78
[2020-10-26 15:21] VITALS: PULSE 78; O2SAT 98
== END 2020-10-26 15:21 | disposition home or self-care (01) ==
LOC: ED 09:33
DX: R07.89 Other chest pain (principal); N18.6 End stage renal disease; Z99.2 Dependence on renal dialysis; Z79.899 Other long term (current) drug therapy; Z79.891 Long term (current) use of opiate analgesic; I10 Essential (primary) hypertension; E03.9 Hypothyroidism, unspecified
CPT/HCPCS: 36000; 36415; 71045; 80053; 81025; 83880; 84484; 85025; 93005; 93041; 99284; A9270-GY

== ENCOUNTER 2020-11-20 20:42 | Emergency (ER) | payer MEDICARE, BC ==
[2020-11-20 21:51] LABS: Absolute Neutrophil Ct (ANC) 11.54 (1.4-6.9); BASOPHIL % 0.1 % (0.0-0.4); Basophil (Absolute #) 0.02 (0-0.4); Eosinophil % 1.1 % (0.00-5.0); Eosinophil (Absolute #) 0.15 (0-0.5); Hematocrit 29.2 % (35-47); Lymphocyte (Absolute #) 1.21 (1.0-4.6); Mean Cell Volume 104.3 fl (78-100); Mean Corpuscular Hemoglobin 32.1 pg (26-32); Mean Corpuscular Hgb Concent. 30.8 g/dl (32-36); Mean Platelet Volume 10.2 fl (7.5-11.0); Monocyte (Absolute #) 0.48 (0.0-1.3); Monocytes % 3.6 % (0.0-12.0); Neutrophil % 86.2 % (36.0-66.0); Platelet Count 239 K/mm3 (150-450); Red Cell Distribution Width 13.5 % (11.5-14.0); White Blood Count 13.4 K/mm3 (4.0-10.5)
[2020-11-20 21:57] LABS: ALBUMIN 4.2 g/dL (3.5-5.0); BILIRUBIN,TOTAL 0.2 mg/dL (0.2-1.3); Calcium 8.5 mg/dL (8.4-10.2); Creatinine 1 11.77 mg/dL (0.52-1.04); Potassium 4.8 mmol/L (3.5-5.1); Total Protein 7.3 g/dL (6.3-8.2)
[2020-11-20] MEDS ORDERED: SUBLIMAZE 100 MCG/2 ML ONE (22:53)
[2020-11-20] MEDS: SUBLIMAZE 100 MCG/2 ML IV ONE (22:56)
--- NOTE | 2020-11-20 22:59 | ERPHSYRPT ---
- History of Present Illness Time Seen by Provider: 11/20/20 21:00 Patient Subjective Stated Complaint: pt states, "I've got an ovarian cyst that is acting up and giving me lots of pain"> Triage Nursing Assessment: pt c/o Lt lower abd pain, which comes around from back to lower abd area. Pt thinks its an ovarian cyst causing her pain on the right side which she's had for awhile, but the pain today is on the left side. Abd obese, soft with active bs x4 quad, nontender on palpation. Physician History: Patient is a 30-year-old female presents to our ED with complaints of left lower quadrant pain. Pain started today. Pain described as an ache that tends to radiate to her back. Patient thinks it may be her ovarian cyst. Patient has a history of ovarian cyst that tend to cause pain. However patient's ovarian cysts occurs on the right side. No trauma no fever. Patient has a history of end-stage renal disease on hemodialysis. Dialysis is performed on Friday and Friday. Patient does not produce urine. Patient otherwise voices no other complaints concerns. Timing/Duration: today Activities at Onset: none Quality: aching Abdominal Pain Onset Location: LLQ Pain Radiation: back Severity of Pain-Max: moderate Severity of Pain-Current: mild Modifying Factors: Improves With: nothing Associated Symptoms: denies symptoms, No chest pain, No diaphoresis, No diarrhea, No fever/chills, No fatigue, No headache, No heartburn, No nausea, No neck pain, No shortness of breath, No syncope, No vomiting Previous symptoms: no prior history Allergies/Adverse Reactions: heparin Allergy (Severe, Verified 11/20/20 21:11) antibodies hydromorphone [From Dilaudid] Allergy (Verified 11/20/20 21:11) naproxen Allergy (Verified 11/20/20 21:11) sulfamethoxazole [From Bactrim] Allergy (Verified 11/20/20 21:11) trimethoprim [From Bactrim] Allergy (Verified 11/20/20 21:11) vancomycin Allergy (Verified 11/20/20 21:11) Home Medications: Alprazolam [Xanax] 0.5 mg PO BID 05/02/14 [History] Fluvoxamine Maleate 100 mg PO BID 01/12/15 [History] Levothyroxine Sodium 100 Mcg [Synthroid 100 Mcg] 137 mcg PO DAILY 05/02/14 [History] [place] Carbonate 300 mg [[place] Carbonate 300 MG] 150 mg PO BID 05/02/14 [History] Ferric Citrate [Auryxia] 420 mg PO UD 10/19/17 [History] Ferric Citrate [Auryxia] 630 mg PO AC 10/19/17 [History] Hydrocodone/Acetaminophen [[place] 5-325 Tablet] 1 each PO BID PRN PRN 10/19/17 [History] calcitrioL [Rocaltrol] 0.5 mcg PO DAILY 10/19/17 [History] Albuterol Sulfate [Proair Hfa] 8.5 gm IH Q4H PRN PRN 09/29/18 [History] Pantoprazole Sodium [Protonix] 40 mg PO DAILY 01/03/19 [History] Carvedilol 12.5 mg [Coreg 12.5 mg] 12.5 mg PO DAILY 04/15/20 [History] Hx Tetanus, Diphtheria Vaccination/Date Given: Yes Hx Influenza Vaccination/Date Given: Yes Hx Pneumococcal Vaccination/Date Given: No Immunizations Up to Date: Yes Travel Risk - International Travel Have you traveled outside of the country in past 3 weeks: No - Coronavirus Screening Are you exhibiting any of the following symptoms?: No Close contact with a COVID-19 positive Pt in past 14-21 Days: No - Vaccine Status Have you recieved a Covid-19 vaccination: No - Review of Systems Constitutional: No Symptoms, No Fever, No Chills Eyes: No Symptoms Ears, Nose, & Throat: No Symptoms Respiratory: No Symptoms, No Cough, No Dyspnea Cardiac: No Symptoms, No Chest Pain, No Edema, No Syncope Abdominal/Gastrointestinal: No Symptoms, No Abdominal Pain, No Nausea, No Vomiting, No Diarrhea Genitourinary Symptoms: No Symptoms, No Dysuria Musculoskeletal: No Symptoms, No Back Pain, No Neck Pain Skin: No Symptoms, No Rash Neurological: No Symptoms, No Dizziness, No Focal Weakness, No Sensory Changes Psychological: No Symptoms Endocrine: No Symptoms Hematologic/Lymphatic: No Symptoms Immunological/Allergic: No Symptoms All Other Systems: Reviewed and Negative - Past Medical History Pertinent Past Medical History: Yes Neurological History: No Pertinent History ENT History: No Pertinent History Cardiac History: Hypertension, Other Respiratory History: No Pertinent History Endocrine Medical History: Hypothyroidism, Other Musculoskeletal History: Fibromyalgia, Rheumatoid Arthritis GI Medical History: No Pertinent History History: Renal Disease Psycho-Social History: Anxiety, Attention Deficit Disorder, Bipolar, Depression, Other Female Reproductive Disorders: No Pertinent History Other Medical History: ANXIETY, DEPRESSION, BIPOLAR, OCD. LEFT FISTULAR UPPER ARM FOR DIALYSIS. Friday, and Friday - Past Surgical History Past Surgical History: Yes Neuro Surgical History: No Pertinent History Cardiac: Cardiac Catheterization Respiratory: No Pertinent History Gastrointestinal: No Pertinent History Genitourinary: Other Musculoskeletal: No Pertinent History Female Surgical History: No Pertinent History Other Surgical History: fistula placment left arm lower (does not work), dialysis cath rt subclavian, mirena placement, kidney biopsy. 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 pd catheter removed. fistula left arm upper is the one they use - Social History Smoking Status: Former smoker How long have you smoked: 3 Exposure to second hand smoke: Yes Drug Use: none Patient Lives Alone: No - Female History Hx Now: No - Nursing Vital Signs Nursing Vital Signs: Initial Vital Signs Temperature 98.2 F 11/20/20 20:59 Pulse Rate 88 11/20/20 20:59 Respiratory Rate 18 11/20/20 20:59 Blood Pressure 140/80 11/20/20 20:59 O2 Sat by Pulse Oximetry 99 11/20/20 20:59 Pain Scale Pain Intensity 10 - Physical Exam General Appearance: no apparent distress, alert Eye Exam: PERRL/EOMI, eyes nml inspection Ears, Nose, Throat Exam: normal ENT inspection, pharynx normal, moist mucous membranes Neck Exam: normal inspection, non-tender, supple, full range of motion Respiratory Exam: normal breath sounds, lungs clear, No respiratory distress Cardiovascular Exam: regular rate/rhythm, normal heart sounds Gastrointestinal/Abdomen Exam: soft, other (Left lower quadrant tenderness. No pelvic pain. Pelvic tenderness. Overlying soft tissue intact. No signs of trauma.), No tenderness, No mass Back Exam: normal inspection, normal range of motion, No CVA tenderness, No vertebral tenderness Extremity Exam: normal inspection, normal range of motion, pelvis stable Neurologic Exam: alert, oriented x 3, cooperative, normal mood/affect, nml cerebellar function, sensation nml, No motor deficits Skin Exam: normal color, warm, dry SpO2 Interpretation: normal SpO2: 99 O2 Delivery: Room Air - Course Nursing assessment & vital signs reviewed: Yes - CT Exams Abdomen/Pelvis CT Interpretation: Tele-radiologist Report (The larger than before left adnexal lesion, which is better characterized with ultrasound examination from 06/07/2020. Due to the growing nature of this complex cyst repeat ultrasound is recommended. Persistent severe atrophy of bilateral renal cortices. Findings compatible with [place] spin) - Radiology Ultrasound Exam Pelvis Ultrasound: discussed w/radiologist (Per discussion with grey percher there is no torsion. There is a complex cyst.) Ordered Tests: Active Orders 24 hr Category Date Time Status IV Insertion STAT Care 11/20/20 21:40 Active ABDOMEN AND PELVIS W/0 CONTRAS [CT] Stat Exams 11/20/20 21:40 Taken PELVIS TRANS VAGINAL [US] Stat Exams 11/20/20 23:21 Taken CBC W DIFF Stat Lab 11/20/20 21:43 Completed CMP Stat Lab 11/20/20 21:43 Completed TROPONIN Q3H Lab 11/20/20 21:43 Completed TROPONIN Q3H Lab 11/21/20 00:20 Completed TROPONIN Q3H Lab 11/21/20 03:45 Ordered TROPONIN Q3H Lab 11/21/20 06:45 Ordered TROPONIN Q3H Lab 11/21/20 09:45 Ordered Medication Summary Discontinued Medications Generic Name Dose Route Start Last Admin Trade Name Abril PRN Reason Stop Dose Admin Fentanyl Citrate 25 mcg 11/20/20 22:51 11/20/20 22:56 Sublimaze 100 Mcg/2 Ml IV 11/20/20 22:52 25 mcg STAT ONE Administration Fentanyl Citrate Confirm 11/20/20 22:53 Sublimaze 100 Mcg/2 Ml Administered 11/20/20 22:54 Dose 100 mcg .ROUTE .STK-MED ONE Fentanyl Citrate 25 mcg 11/21/20 01:16 11/21/20 01:22 Sublimaze 100 Mcg/2 Ml IV 11/21/20 01:17 25 mcg STAT ONE Administration Fentanyl Citrate Confirm 11/21/20 01:20 Sublimaze 100 Mcg/2 Ml Administered 11/21/20 01:21 Dose 100 mcg .ROUTE .STK-MED ONE Fentanyl Citrate 25 mcg 11/21/20 02:39 11/21/20 02:49 Sublimaze 100 Mcg/2 Ml IV 11/21/20 02:40 25 mcg STAT ONE Administration Fentanyl Citrate Confirm 11/21/20 02:47 Sublimaze 100 Mcg/2 Ml Administered 11/21/20 02:48 Dose 100 mcg .ROUTE .STK-MED ONE Lab/Rad Data: Laboratory Result Diagrams 11/20/20 21:43 11/20/20 21:43 Laboratory Results 11/21/20 11/20/20 11/20/20 Range/Units 00:20 21:43 21:43 WBC (4.0-10.5) K/mm3 RBC (4.1-5.4) M/mm3 Hgb (12.0-16.0) gm/dl Hct (35-47) % MCV (78-100) fl MCH (26-32) pg MCHC (32-36) g/dl RDW (11.5-14.0) % Plt Count (150-450) K/mm3 MPV (7.5-11.0) fl Gran % (36.0-66.0) % Eos # (Auto) (0-0.5) Absolute Lymphs (auto) (1.0-4.6) Absolute Monos (auto) (0.0-1.3) Lymphocytes % (24.0-44.0) % Monocytes % (0.0-12.0) % Eosinophils % (0.00-5.0) % Basophils % (0.0-0.4) % Absolute Granulocytes (1.4-6.9) Basophils # (0-0.4) Sodium 135 L (137-145) mmol/L Potassium 4.8 (3.5-5.1) mmol/L Chloride 93 L (98-107) mmol/L Carbon Dioxide 23 (22-30) mmol/L Anion Gap 23.0 H (5-15) MEQ/L BUN 77 H (7-17) mg/dL Creatinine 11.77 H (0.52-1.04) mg/dL Estimated GFR 4.0 ML/MIN Glucose 92 (74-106) mg/dL Calcium 8.5 (8.4-10.2) mg/dL Total Bilirubin 0.20 (0.2-1.3) mg/dL AST 21 (14-36) U/L ALT 12 (0-35) U/L Alkaline Phosphatase 402 H (38-126) U/L Troponin I 0.019 0.018 (0.000-0.034) ng/mL Serum Total Protein 7.3 (6.3-8.2) g/dL Albumin 4.2 (3.5-5.0) g/dL 11/20/20 Range/Units 21:43 WBC 13.4 H (4.0-10.5) K/mm3 RBC 2.80 L (4.1-5.4) M/mm3 Hgb 9.0 L (12.0-16.0) gm/dl Hct 29.2 L (35-47) % MCV 104.3 H (78-100) fl MCH 32.1 H (26-32) pg MCHC 30.8 L (32-36) g/dl RDW 13.5 (11.5-14.0) % Plt Count 239 (150-450) K/mm3 MPV 10.2 (7.5-11.0) fl Gran % 86.2 H (36.0-66.0) % Eos # (Auto) 0.15 (0-0.5) Absolute Lymphs (auto) 1.21 (1.0-4.6) Absolute Monos (auto) 0.48 (0.0-1.3) Lymphocytes % 9.0 L (24.0-44.0) % Monocytes % 3.6 (0.0-12.0) % Eosinophils % 1.1 (0.00-5.0) % Basophils % 0.1 (0.0-0.4) % Absolute Granulocytes 11.54 H (1.4-6.9) Basophils # 0.02 (0-0.4) Sodium (137-145) mmol/L Potassium (3.5-5.1) mmol/L Chloride (98-107) mmol/L Carbon Dioxide (22-30) mmol/L Anion Gap (5-15) MEQ/L BUN (7-17) mg/dL Creatinine (0.52-1.04) mg/dL Estimated GFR ML/MIN Glucose (74-106) mg/dL Calcium (8.4-10.2) mg/dL Total Bilirubin (0.2-1.3) mg/dL AST (14-36) U/L ALT (0-35) U/L Alkaline Phosphatase (38-126) U/L Troponin I (0.000-0.034) ng/mL Serum Total Protein (6.3-8.2) g/dL Albumin (3.5-5.0) g/dL - Progress Progress: improved Progress Note: Reassessed. Pain improved. CT shows there is an IUD in place. 4.5 cm in diameter near fluid density lesion is again noted which has slightly enlarged since the prior study. Additionally left adnexal lesion has also grown in size consistent with complex cyst. Repeat ultrasound recommended. 11/20/20 23:25 11/21/20 02:46 Troponin negative and stable x2. Patient reassessed. She continues to experience pain to the left lower quadrant. We advised transfer for further evaluation and treatment of pain. We are unable to keep patient here in our hospital as we have no beds available and do not perform hemodialysis. Patient initially agreed to transfer to [facility]. Patient later notified us and told us that she preferred discharge. 11/21/20 03:20 Patient changed her mind. Patient states she prefers to be admitted. Patient now requesting transfer to [facility]. Case discussed with Dr. Mccallum ER physician at [facility] who accepts transfer. Counseled pt/family regarding: lab results, diagnosis, need for follow-up, rad results - Departure Departure Disposition: Home Clinical Impression: Adnexal cyst, rug[place] spine, Intractable abdominal pain, Leukocytosis, Macrocytic anemia, ESRD (end stage renal disease) Condition: Stable Critical Care Time: No Referrals: DOCTOR,NO FAMILY [Primary Care Provider] -
[2020-11-20 23:24] VITALS: O2SAT 99
[2020-11-21] MEDS ORDERED: SUBLIMAZE 100 MCG/2 ML ONE ×2 (01:20→02:47)
[2020-11-21] MEDS: SUBLIMAZE 100 MCG/2 ML IV ONE ×2 (01:22→02:49)
[2020-11-21 03:21] VITALS: BP 138/78; PULSE 101
--- NOTE | 2020-11-21 08:42 | XRAY ---
Indication: Torsion. Two-dimensional transvaginal pelvic sonogram performed. Comparison: June 07, 2020. Uterus again anteverted measuring 6.1 x 2.8 x 3.8 cm. Lower uterine segment again demonstrates tiny 3 mm nabothian cyst. No other focal solid/cystic uterine mass. Endometrial cavity again demonstrates a IUD with tip at the level of fundus. No endometrial cavity mass or fluid collection. Right ovary measures 3.7 x 1.9 x 3.3 cm and the left measures 4.3 x 3.7 x 4.9 cm. Normal perfusion bilaterally. Left ovary again demonstrates a complex echogenic cyst measuring 3.5 x 2.6 x 4.0 cm, previously 3.4 x 2.8 x 2.2 cm. No free fluid. Impression: Minimally enlarging left ovary complex echogenic cyst. Again incidental IUD and tiny nabothian cyst.
--- NOTE | 2020-11-21 09:07 | XRAY ---
Indication: Low back pain. History ovarian cyst. Dialysis. Multiple contiguous axial images obtained through the abdomen and pelvis without contrast. Comparison: April 15, 2020. Lung bases are clear. Heart is borderline enlarged. Noncontrasted stomach and bowel loops nonobstructed with normal appendix. Enlarging 4.6 cm left ovary cyst, previously 4 cm. Stable bilateral renal atrophy with nonobstructing micro-calculi, 14.4 cm splenomegaly, and IUD. No free fluid/air. Remaining liver, gallbladder, pancreas, spleen, adrenal glands, kidneys, ureters, bladder, and aorta are unremarkable for noncontrast exam. Osseous structures intact again with diffuse osteosclerosis. Impression: 1. Interval enlargement 4.6 cm left ovary cyst. Pelvic sonogram may yield further information. 2. Incidental borderline cardiomegaly, bilateral renal atrophy with nonobstructing micro-calculi, splenomegaly, and diffuse bony sclerosis presumed from renal osteodystrophy. 3. Remaining CT abdomen/pelvis without contrast exam is negative. Comment: Preliminary interpretation made by [facility]. No critical discrepancy.
== END 2020-11-21 04:02 | disposition short-term general hospital (02) ==
LOC: ED 20:42
DX: R10.32 Left lower quadrant pain (principal); N83.201 Unspecified ovarian cyst, right side; I12.0 Hypertensive chronic kidney disease with stage 5 chronic kidney disease or end stage renal disease; N18.6 End stage renal disease; Z99.2 Dependence on renal dialysis; Z79.899 Other long term (current) drug therapy; E03.9 Hypothyroidism, unspecified; D72.829 Elevated white blood cell count, unspecified; D53.9 Nutritional anemia, unspecified; M43.8X9 Other specified deforming dorsopathies, site unspecified
CPT/HCPCS: 36000; 36415; 74176; 76830; 80053; 84484; 85025; 96374; 96376; 99285; J3010

== ENCOUNTER 2021-02-27 21:28 | Emergency (ER) | payer MEDICARE, BC ==
[2012-01-02 12:19] VITALS: BP 130/78
--- NOTE | 2021-02-27 21:33 | ERPHSYRPT ---
- History of Present Illness Time Seen by Provider: 02/27/21 22:20 Source: patient Exam Limitations: no limitations Physician History: This is a 30-year-old white female who is on hemodialysis and was dialyzed today. She patient is allergic to heparin. She is not on any anticoagulant therapy. She does bruise easily since she has had renal failure. Today, prior to arrival, patient did scratch the inner surface of her right nostril and she began bleeding. She arrives without hypertension. She has suffered no trauma other than the scratching right inner nostril earlier today. Patient states that she has had nosebleed in the past but not for couple years. Timing/Duration: abrupt onset Prearrival Treatment: no prearrival treatment Modifying Factors: Improves With: nothing Allergies/Adverse Reactions: heparin Allergy (Severe, Verified 02/27/21 22:19) antibodies hydromorphone [From Dilaudid] Allergy (Verified 02/27/21 22:19) naproxen Allergy (Verified 02/27/21 22:19) sulfamethoxazole [From Bactrim] Allergy (Verified 02/27/21 22:19) trimethoprim [From Bactrim] Allergy (Verified 02/27/21 22:19) vancomycin Allergy (Verified 02/27/21 22:19) Home Medications: Alprazolam [Xanax] 0.5 mg PO BID 05/02/14 [History] Fluvoxamine Maleate 100 mg PO BID 05/02/14 [History] Levothyroxine Sodium 100 Mcg [Synthroid 100 Mcg] 137 mcg PO DAILY 05/02/14 [History] [place] Carbonate 300 mg [[place] Carbonate 300 MG] 150 mg PO BID 05/02/14 [History] Ferric Citrate [Auryxia] 420 mg PO UD 10/19/17 [History] Ferric Citrate [Auryxia] 630 mg PO AC 10/19/17 [History] Hydrocodone/Acetaminophen [[place] 5-325 Tablet] 1 each PO BID PRN PRN 10/19/17 [History] calcitrioL [Rocaltrol] 0.5 mcg PO DAILY 10/19/17 [History] Albuterol Sulfate [Proair Hfa] 8.5 gm IH Q4H PRN PRN 09/29/18 [History] Pantoprazole Sodium [Protonix] 40 mg PO DAILY 01/03/19 [History] Carvedilol 12.5 mg [Coreg 12.5 mg] 12.5 mg PO DAILY 04/15/20 [History] Hx Tetanus, Diphtheria Vaccination/Date Given: Yes Hx Influenza Vaccination/Date Given: Yes Hx Pneumococcal Vaccination/Date Given: No Travel Risk - International Travel Have you traveled outside of the country in past 3 weeks: No - Coronavirus Screening Are you exhibiting any of the following symptoms?: No Close contact with a COVID-19 positive Pt in past 14-21 Days: No - Vaccine Status Have you recieved a Covid-19 vaccination: No - Review of Systems Constitutional: No Symptoms Eyes: No Symptoms Ears, Nose, & Throat: Epistaxis (Right nostril), Other Cardiac: No Symptoms Abdominal/Gastrointestinal: No Symptoms Genitourinary Symptoms: No Symptoms Musculoskeletal: No Symptoms Skin: No Symptoms Neurological: No Symptoms Psychological: No Symptoms Endocrine: No Symptoms Hematologic/Lymphatic: No Symptoms Immunological/Allergic: No Symptoms All Other Systems: Reviewed and Negative - Past Medical History Pertinent Past Medical History: Yes Neurological History: No Pertinent History ENT History: No Pertinent History Cardiac History: Hypertension, Other Respiratory History: No Pertinent History Endocrine Medical History: Hypothyroidism, Other Musculoskeletal History: Fibromyalgia, Rheumatoid Arthritis GI Medical History: No Pertinent History History: Renal Disease Psycho-Social History: Anxiety, Attention Deficit Disorder, Bipolar, Depression, Other Female Reproductive Disorders: No Pertinent History Other Medical History: ANXIETY, DEPRESSION, BIPOLAR, OCD. LEFT FISTULAR UPPER ARM FOR DIALYSIS. Friday, and Friday - Past Surgical History Past Surgical History: Yes Neuro Surgical History: No Pertinent History Cardiac: Cardiac Catheterization Respiratory: No Pertinent History Gastrointestinal: No Pertinent History Genitourinary: Other Musculoskeletal: No Pertinent History Female Surgical History: No Pertinent History Other Surgical History: fistula placment left arm lower (does not work), dialysis cath rt subclavian, mirena placement, kidney biopsy. 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 pd catheter removed. fistula left arm upper is the one they use - Social History Smoking Status: Former smoker How long have you smoked: 3 Exposure to second hand smoke: Yes Drug Use: none Patient Lives Alone: No - Nursing Vital Signs Nursing Vital Signs: Initial Vital Signs Temperature 98.3 F 02/27/21 22:08 Pulse Rate 102 H 02/27/21 22:08 Respiratory Rate 18 02/27/21 22:08 Blood Pressure 124/90 02/27/21 22:08 O2 Sat by Pulse Oximetry 100 02/27/21 22:08 Pain Scale Pain Intensity 0 Ordered Tests: Medication Summary Discontinued Medications Generic Name Dose Route Start Last Admin Trade Name Abril PRN Reason Stop Dose Admin Cephalexin HCl Confirm 02/28/21 00:00 Cephalexin Mh500 Mg Capsule Administered 02/28/21 00:01 Dose 500 mg .ROUTE .STK-MED ONE Cephalexin HCl 500 mg 02/28/21 00:01 Cephalexin Mh500 Mg Capsule PO 02/28/21 00:02 STAT ONE Phenylephrine HCl 15 ml 02/27/21 22:35 02/27/21 22:45 Neosynephrine 0.5% Nasal [place]/Drops NS 02/27/21 22:36 15 ml STAT ONE Administration - Progress Progress: improved Progress Note: 02/28/21 00:05 Medical decision making: This patient has renal failure and is on dialysis. She therefore does have some bleeding issues and bruises easily. She is not on any anticoagulation therapy. She did state that she did scratch the inside of her nasal mucosa on the right side. It was then where she noticed bleeding. We attempted Otf-Synephrine sprays in both nostrils with clipping of the nostrils with a nasal clip externally. The nasal clip did control the external nostril bleeding but she felt blood dripping in her oropharynx. Therefore, we placed a 7.5 anterior/posterior Rhino Rocket in the right nostril. We then inflated the balloon. This substantially decrease the bleeding from the right nostril but did not stop it completely. We have been slowly inflating the balloon. Patient is being placed on Keflex. The plan is to continue the Rhino Rocket and inflating the balloon till the bleeding is coming controlled. She no longer feels the blood dripping in the back of her oropharynx. We will discharge her to home once this occurs and she will follow-up with clearing tub worker. Counseled pt/family regarding: diagnosis, need for follow-up - Departure Departure Disposition: Home Clinical Impression: Epistaxis Condition: Stable Critical Care Time: No Referrals: LEONARD CONCEPCION NP [Primary Care Provider] - Follow up/PCP as directed Additional Instructions: Keep the Rhino Rocket in place. Call clearing tub worker (names provided). Take your antibiotics as prescribed. If you notice that you begin bleeding again despite the Rhino Rocket in place, you can return to our facility. However, we do not have clearing tub worker. As we discussed you can go directly to [facility] or [facility] in [facility]. They have clearing tub worker that can provide the next level of care if necessary. Prescriptions: Cephalexin Mh 500 mg [Keflex 500 mg] 500 mg PO TID #21 cap
[2021-02-27] MEDS ORDERED: NEOSYNEPHRINE 0.5% NASAL SPRAY/DROPS NS ONE (22:35)
[2021-02-28] MEDS ORDERED: KEFLEX 500 MG ONE
[2021-02-28] MEDS ORDERED: KEFLEX 500 MG PO ONE (00:01)
[2021-02-28] MEDS ORDERED: NORCO 5/325 MG PO ONE (00:24)
[2021-02-28] MEDS ORDERED: NORCO 5/325 MG ONE (00:44)
== END 2021-02-28 01:03 | disposition home or self-care (01) ==
LOC: ED 21:28
DX: R04.0 Epistaxis (principal); N19 Unspecified kidney failure; Z99.2 Dependence on renal dialysis; Z79.899 Other long term (current) drug therapy
CPT/HCPCS: 99283; A9270-GY

== ENCOUNTER 2024-03-27 04:23 | Emergency (ER) | payer MEDICARE ==
[2024-03-27 04:43] VITALS: TEMP 97.3
--- NOTE | 2024-03-27 04:46 | ERPHSYRPT ---
- History of Present Illness Time Seen by Provider: 03/27/24 04:45 Source: patient Exam Limitations: no limitations Patient Subjective Stated Complaint: c/o nose bleed Triage Nursing Assessment: patient brought into ED by mother with c/o nose bleed form right nostril. Patient woke up at 0300 and swipe her nose and it started bleeding and wouldn't stop. patient denies being in any pain, hypertensive, skin w/n/d, pulses normal, pt doesn't appear to be in any distress at this time. Physician History: The patient presents with epistaxis. They have experienced epistaxis that began at 3:00, with significant bleeding that is now slowing down. The right nostril is identified as the source of the bleeding. This is the second occurrence of epistaxis. The first incident was due to a previous injury described as a 'busted' nose, but no further details are provided. Timing/Duration: abrupt onset, this morning Severity: moderate ENT Location: nose (right nostril) Prearrival Treatment: squeezing nostrils Modifying Factors: Improves With: nothing Associated Symptoms: epistaxis, No fever, No nasal foreign body Allergies/Adverse Reactions: heparin Allergy (Severe, Verified 03/27/24 04:43) antibodies hydromorphone [From Dilaudid] Allergy (Verified 03/27/24 04:43) naproxen Allergy (Verified 03/27/24 04:43) sulfamethoxazole [From Bactrim] Allergy (Verified 03/27/24 04:43) trimethoprim [From Bactrim] Allergy (Verified 03/27/24 04:43) vancomycin Allergy (Verified 03/27/24 04:43) Home Medications: Fluvoxamine Maleate 100 mg PO BID 05/02/14 [History] Levothyroxine Sodium 100 Mcg [Synthroid 100 Mcg] 137 mcg PO DAILY 05/02/14 [History] [place] Carbonate 300 mg [[place] Carbonate 300 MG] 150 mg PO BID 05/02/14 [History] Pantoprazole Sodium [Protonix] 40 mg PO DAILY 01/03/19 [History] Carvedilol 12.5 mg [Coreg 12.5 mg] 12.5 mg PO BID 04/15/20 [History] ALPRAZolam 0.25 MG [xanAX 0.25 MG] 0.25 mg PO BID 03/27/24 [History] Acetaminophen 325 mg PO DAILY PRN PRN 03/27/24 [History] Aspirin 81 mg PO DAILY 03/27/24 [History] Cinacalcet HCl [Sensipar] 90 mg PO UD 03/27/24 [History] Docusate Sodium 100 mg [Docusate Sodium 100 MG] 100 mg PO BID 03/27/24 [History] Ergocalciferol (Vitamin D2) [Vitamin D2] 50,000 unit PO Q7D 03/27/24 [History] Losartan Potassium 100 mg PO DAILY 03/27/24 [History] Prednisone [Dexetr] 1 mg PO DAILY 03/27/24 [History] Tacrolimus 6 mg PO DAILY 03/27/24 [History] Hx Tetanus, Diphtheria Vaccination/Date Given: Yes Hx Influenza Vaccination/Date Given: Yes Hx Pneumococcal Vaccination/Date Given: No Travel Risk - International Travel Have you traveled outside of the country in past 3 weeks: No - Emerging Infectious Disease Are you exhibiting symptoms associated with any current EIDs: No - Review of Systems All Other Systems: Reviewed and Negative - Past Medical History Pertinent Past Medical History: Yes Neurological History: No Pertinent History ENT History: No Pertinent History Cardiac History: Hypertension, Other Respiratory History: No Pertinent History Endocrine Medical History: Hypothyroidism, Other Musculoskeletal History: Fibromyalgia, Rheumatoid Arthritis GI Medical History: No Pertinent History History: Renal Disease Psycho-Social History: Anxiety, Attention Deficit Disorder, Bipolar, Depression, Other Female Reproductive Disorders: No Pertinent History Other Medical History: ANXIETY, DEPRESSION, BIPOLAR, OCD. LEFT FISTULAR UPPER ARM FOR DIALYSIS. Friday, and Friday - Past Surgical History Past Surgical History: Yes Neuro Surgical History: No Pertinent History Cardiac: Cardiac Catheterization Respiratory: No Pertinent History Gastrointestinal: No Pertinent History Genitourinary: Other Musculoskeletal: No Pertinent History Female Surgical History: No Pertinent History Other Surgical History: fistula placment left arm lower (does not work), dialysis cath rt subclavian, mirena placement, kidney biopsy. 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 pd catheter removed. fistula left arm upper is the one they use - Female History Hx Last Menstrual Period: 3 WEEKS AGO Hx Now: No - Social History Smoking Status: Never smoker How long have you smoked: 3 Exposure to second hand smoke: Yes Drug Use: none Patient Lives Alone: No - Social Determinants of Health Will the patient participate in the screening: Yes Do you worry about a steady place to live?: No Do you have any problems with any of the following?: No known problems In the past 12 months,have you had to go without utilities?: No Transportation Issues: No Has anyone in your support network made you feel unsafe?: No Have you or anyone in your house had to go without enough: No - Nursing Vital Signs Nursing Vital Signs: Initial Vital Signs Temperature 97.3 F 03/27/24 04:33 Pulse Rate 73 03/27/24 04:33 Respiratory Rate 18 03/27/24 04:33 Blood Pressure 164/102 03/27/24 04:33 O2 Sat by Pulse Oximetry 98 03/27/24 04:33 Pain Scale Pain Intensity 0 - Physical Exam General Appearance: no apparent distress Nasal Exam: dried blood (right nostil, no active bleeding appreciated) Neck Exam: normal inspection, full range of motion Skin Exam: normal color, warm, dry SpO2 Interpretation: normal SpO2: 98 O2 Delivery: Room Air Procedures - Additional Procedures Progress: Right nare Urojet applied with cotton swab to area of bleeding on anterior right septum then silver nitrate was used to cauterize the area of bleeding. Hemostasis achieved and clip reappled. Time of procedure 0530 Patient tolerated well. - Course Nursing assessment & vital signs reviewed: Yes Ordered Tests: Medication Summary Discontinued Medications Generic Name Dose Route Start Last Admin Trade Name Freq PRN Reason Stop Dose Admin Bacitracin Zinc Confirm 03/27/24 04:56 Bacitracin Packet 1 Each Pckt Administered 03/27/24 04:57 Dose 1 each .ROUTE .STK-MED ONE Lidocaine HCl Confirm 03/27/24 05:20 Lidocaine Hcl 20 Mg/Ml Jelly Uro-Jet Administered 03/27/24 05:21 Dose 200 mg .ROUTE .STK-MED ONE Lidocaine HCl 200 mg 03/27/24 05:21 03/27/24 05:22 Lidocaine Hcl 20 Mg/Ml Jelly Uro-Jet TOP 03/27/24 05:22 200 mg STAT ONE Administration Oxymetazoline HCl 15 ml 03/27/24 04:44 03/27/24 04:55 Oxymetazoline Nasal Adin 15ml Bottle NS 03/27/24 04:45 15 ml STAT ONE Administration Silver Nitrate 1 pkt 03/27/24 05:25 03/27/24 05:28 Silver Nitrate 1 Pkt Each TP 03/27/24 05:26 1 pkt ONCE ONE Administration Silver Nitrate Confirm 03/27/24 05:27 Silver Nitrate 1 Pkt Each Administered 03/27/24 05:28 Dose 1 pkt TP .STK-MED ONE - Progress Progress: improved Progress Note: Epistaxis Acute epistaxis from the right nostril, significant but now slowing. No active bleeding spots observed, potential site further back. Previous similar episode noted. Discussed Afrin spray and nasal plug for control, with further intervention if needed. - Administer Afrin spray and bacitracin to the affected nostril - Apply nasal plug and maintain pressure for 15 minutes - Recheck after 15 minutes to assess bleeding status - Consider further intervention if active bleeding persists. On repeat evaluation area of bleeding identified, 2% viscous lidocaine applied to area and silver nitrate used to cauterize the anterior right septum. Patient tolerated procedure well, hemostasis achieved and clip reapplied to nose. Advised to wear clip for the next 3 hours. Avoid aspirin use for the next 72 hours. Apply Vaseline to nares QD. If bleeding returns come to ER for reevaluation. Counseled pt/family regarding: diagnosis Medical Desision Making - Diagnostic Testing Diagnostic test were ordered, analyzed, and reviewed by me: No - Risk of complications The pt has a mod risk of morbidity or mortality based on: Need for prescription drug management - Departure Departure Disposition: Home Clinical Impression: Epistaxis Condition: Good Critical Care Time: No Referrals: LEIDY DENNIS [Primary Care Provider] - Follow up/PCP as directed Instructions: Nosebleeds (DC)
[2024-03-27] MEDS: AFRIN NASAL SPRAY NS ONE (04:55)
[2024-03-27] MEDS ORDERED: BACIGUENT PACKET ONE (04:56)
[2024-03-27] MEDS ORDERED: XYLOCAINE 2% Uro-Jet ONE (05:20)
[2024-03-27] MEDS: XYLOCAINE 2% Uro-Jet TOP ONE (05:22)
[2024-03-27] MEDS ORDERED: ARZOL Silver Nitrate Applicator TP ONE (05:27)
[2024-03-27] MEDS: ARZOL Silver Nitrate Applicator TP ONE (05:28)
[2024-03-27 05:29] VITALS: BP 157/99; PULSE 73; RESP 19
[2024-03-27 05:40] VITALS: O2SAT 98
== END 2024-03-27 05:45 | disposition home or self-care (01) ==
LOC: ED 04:23
DX: R04.0 Epistaxis (principal)
CPT/HCPCS: 30901; 99281; 99282; A9270-GY

== ENCOUNTER 2024-03-27 22:26 | Emergency (ER) | payer MEDICARE ==
[2024-03-27 22:41] VITALS: RESP 18; TEMP 97.9; O2SAT 99
--- NOTE | 2024-03-27 22:46 | ERPHSYRPT ---
- History of Present Illness Time Seen by Provider: 03/27/24 22:44 Source: patient, family Exam Limitations: no limitations Patient Subjective Stated Complaint: Pt. reports, "I was here this morning for nose bleed, the used the stick thing to stop it. It started bleeding again about 1 hour ago." Triage Nursing Assessment: Pt. ambulated to room without difficulty, able to move all four ext. A&Ox3, nasal clamp in place. Physician History: Pt had onset of nose bleed early this am and was here having tx with afrin and this worked a while. Hx is notable for renal transplant. she has had this before the transplant. No hx trauma. Nontender on exam and bleeding from typical tanya triange anterior nares on right. Discussed with pt and available family risks and benefits of testing/Tx including CBC, coag studies, rhino rocket placement topical Antibiotic and they wish to proceed so these are ordered. Results discussed with pt and available family. Timing/Duration: persistent, this morning Severity: moderate Prearrival Treatment: over the counter meds, squeezing nostrils Associated Symptoms: epistaxis, No sore throat, No difficulty swallowing, No voice change Allergies/Adverse Reactions: heparin Allergy (Severe, Verified 03/27/24 04:43) antibodies hydromorphone [From Dilaudid] Allergy (Verified 03/27/24 04:43) naproxen Allergy (Verified 03/27/24 04:43) sulfamethoxazole [From Bactrim] Allergy (Verified 03/27/24 04:43) trimethoprim [From Bactrim] Allergy (Verified 03/27/24 04:43) vancomycin Allergy (Verified 03/27/24 04:43) Home Medications: Fluvoxamine Maleate 100 mg PO BID 05/02/14 [History] Levothyroxine Sodium 100 Mcg [Synthroid 100 Mcg] 137 mcg PO DAILY 05/02/14 [History] [place] Carbonate 300 mg [[place] Carbonate 300 MG] 150 mg PO BID 05/02/14 [History] Pantoprazole Sodium [Protonix] 40 mg PO DAILY 01/03/19 [History] Carvedilol 12.5 mg [Coreg 12.5 mg] 12.5 mg PO BID 04/15/20 [History] ALPRAZolam 0.25 MG [xanAX 0.25 MG] 0.25 mg PO BID 03/27/24 [History] Acetaminophen 325 mg PO DAILY PRN PRN 03/27/24 [History] Aspirin 81 mg PO DAILY 03/27/24 [History] Cinacalcet HCl [Sensipar] 90 mg PO UD 03/27/24 [History] Docusate Sodium 100 mg [Docusate Sodium 100 MG] 100 mg PO BID 03/27/24 [History] Ergocalciferol (Vitamin D2) [Vitamin D2] 50,000 unit PO Q7D 03/27/24 [History] Losartan Potassium 100 mg PO DAILY 03/27/24 [History] Prednisone [[place]] 1 mg PO DAILY 03/27/24 [History] Tacrolimus 6 mg PO DAILY 03/27/24 [History] Hx Tetanus, Diphtheria Vaccination/Date Given: Yes Hx Influenza Vaccination/Date Given: Yes Hx Pneumococcal Vaccination/Date Given: No Travel Risk - International Travel Have you traveled outside of the country in past 3 weeks: No - Emerging Infectious Disease Are you exhibiting symptoms associated with any current EIDs: No - Review of Systems Constitutional: No Fever, No Chills Eyes: No Symptoms Ears, Nose, & Throat: No Symptoms, Epistaxis Respiratory: No Cough, No Dyspnea Cardiac: No Chest Pain, No Edema, No Syncope Abdominal/Gastrointestinal: No Abdominal Pain, No Nausea, No Vomiting, No Laury rrhea Genitourinary Symptoms: No Dysuria Musculoskeletal: No Back Pain, No Neck Pain Skin: No Rash Neurological: No Dizziness, No Focal Weakness, No Sensory Changes Psychological: No Symptoms Endocrine: No Symptoms Hematologic/Lymphatic: No Symptoms Immunological/Allergic: No Symptoms All Other Systems: Reviewed and Negative - Past Medical History Pertinent Past Medical History: Yes Neurological History: No Pertinent History ENT History: No Pertinent History Cardiac History: Hypertension, Other Respiratory History: No Pertinent History Endocrine Medical History: Hypothyroidism, Other Musculoskeletal History: Fibromyalgia, Rheumatoid Arthritis GI Medical History: No Pertinent History History: Renal Disease Psycho-Social History: Anxiety, Attention Deficit Disorder, Bipolar, Depression, Other Female Reproductive Disorders: No Pertinent History Other Medical History: ANXIETY, DEPRESSION, BIPOLAR, OCD. LEFT FISTULAR UPPER ARM FOR DIALYSIS. Friday, and Friday - Past Surgical History Past Surgical History: Yes Neuro Surgical History: No Pertinent History Cardiac: Cardiac Catheterization Respiratory: No Pertinent History Gastrointestinal: No Pertinent History Genitourinary: Other Musculoskeletal: No Pertinent History Female Surgical History: No Pertinent History Other Surgical History: fistula placment left arm lower (does not work), dialysis cath rt subclavian, mirena placement, kidney biopsy. 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 pd catheter removed. fistula left arm upper is the one they use - Female History Hx Last Menstrual Period: 3 WEEKS AGO Hx Now: No - Social History Smoking Status: Never smoker How long have you smoked: 3 Exposure to second hand smoke: Yes Drug Use: none Patient Lives Alone: No - Social Determinants of Health Will the patient participate in the screening: Yes Do you worry about a steady place to live?: No Do you have any problems with any of the following?: No known problems In the past 12 months,have you had to go without utilities?: No Transportation Issues: No Has anyone in your support network made you feel unsafe?: No Have you or anyone in your house had to go without enough: No - Nursing Vital Signs Nursing Vital Signs: Initial Vital Signs Temperature 97.9 F 03/27/24 22:34 Pulse Rate 87 03/27/24 22:34 Respiratory Rate 18 03/27/24 22:34 Blood Pressure 129/96 03/27/24 22:34 O2 Sat by Pulse Oximetry 99 03/27/24 22:34 Pain Scale Pain Intensity 0 - Physical Exam General Appearance: no apparent distress, alert Eye Exam: bilateral eye: PERRL, EOMI Ear Exam: bilateral ear: auricle normal, canal normal, TM normal Nasal Exam: normal inspection, active bleeding Throat Exam: pharynx normal, moist mucus membranes, No dental tenderness, No excessive drooling, No foreign body, No mandibular swelling, No maxillary swelling, No pharynx swelling, No pharynx tenderness, No tongue swollen, No tonsillar exudate, No trismus, No uvula swelling, No voice changes Neck Exam: normal inspection, non-tender, supple, full range of motion, trachea midline Cardiovascular/Respiratory Exam: normal breath sounds, regular rate/rhythm Abdominal Exam: non-tender, soft Neurologic Exam: alert, oriented x 3, sensation nml, No motor deficits Skin Exam: normal color, warm, dry SpO2 Interpretation: normal SpO2: 99 O2 Delivery: Room Air Ordered Tests: Active Orders 24 hr Category Date Time Status CBC W DIFF Stat Lab 03/27/24 23:13 Completed PT INR [PROTIME WITH INR] Stat Lab 03/27/24 23:13 Completed PTT Stat Lab 03/27/24 23:13 Completed Medication Summary Discontinued Medications Generic Name Dose Route Start Last Admin Trade Name [place] PRN Reason Stop Dose Admin Bacitracin Zinc Confirm 03/27/24 23:03 Bacitracin Packet 1 Each Pckt Administered 03/27/24 23:04 Dose 2 each .ROUTE .STK-MED ONE Lab/Rad Data: Laboratory Result Diagrams 03/27/24 23:13 Laboratory Results 03/27/24 03/27/24 Range/Units 23:13 23:13 WBC 8.4 (3.98-10.04) x10^3/uL RBC 4.25 (3.93-5.22) x10^6/uL Hgb 12.9 (11.2-15.7) g/dL Hct 41.2 (34.1-44.9) % MCV 96.9 H (79.4-94.8) fL MCH 30.4 (25.6-32.2) pg MCHC 31.3 L (32.2-35.5) g/dL RDW 12.9 (11.7-14.4) % Plt Count 189 (182-369) x10^3/uL MPV 10.3 (9.4-12.3) fL Gran % 70.5 (34.0-71.1) % Immature Gran % (Auto) 0.7 H (0.001-0.429) % Nucleat RBC Rel Count 0.0 (0.00-0.2) % Eos # (Auto) 0.16 (0.04-0.36) x10^3/uL Immature Gran # (Auto) 0.06 H (0.001-0.031) x10^3u/L Absolute Lymphs (auto) 1.71 (1.18-3.74) x10^3/uL Absolute Monos (auto) 0.50 (0.24-0.86) x10^3/uL Absolute Nucleated RBC 0.00 (0.00-0.012) x10^3u/L Lymphocytes % 20.3 (19.3-51.7) % Monocytes % 5.9 (4.7-12.5) % Eosinophils % 1.9 (0.7-5.8) % Basophils % 0.7 (0.1-1.2) % Absolute Granulocytes 5.92 (1.56-6.13) x10^3/uL Basophils # 0.06 (0.01-0.08) x10^3/uL PT 10.9 (9.4-12.5) SECONDS INR 1.00 (0.8-3.0) APTT 30.7 (25.1-36.5) SECONDS - Progress Progress: improved, re-examined Progress Note: 03/27/24 23:47 Rhino rocket placed right nares with bacitracin lubrication. balloon tested and rechecked after 20 minutes. 03/27/24 23:48 03/27/24 23:56 pt is good on recheck and needs no further air in device. bleeding has stopped. Counseled pt/family regarding: lab results, diagnosis, need for follow-up Medical Desision Making - Independent Historian Additional History obtained from: Family - Discussion of managment Reviewed:: Test results, Need for additional workup Agreed on:: Treatment plan, need for follow-up - Diagnostic Testing Diagnostic test were ordered, analyzed, and reviewed by me: Yes Radiological Interpretation: Interpreted by me - Risk of complications The pt has a mod risk of morbidity or mortality based on: Need for prescription drug management - Departure Departure Disposition: Home Clinical Impression: Epistaxis, persistent epistaxis right nares Condition: Good Critical Care Time: No Referrals: LEIDY DENNIS [Primary Care Provider] - Follow up/PCP as directed Instructions: Nosebleeds (DC) Additional Instructions: have the device removed Friday at your medical providers office. return meantime if further bleeding or any symptoms.
[2024-03-27] MEDS ORDERED: BACIGUENT PACKET ONE (23:03)
[2024-03-27 23:18] LABS: Absolute Neutrophil Ct (ANC) 5.92 x10^3/uL (1.56-6.13); BASOPHIL % 0.7 % (0.1-1.2); Basophil (Absolute #) 0.06 x10^3/uL (0.01-0.08); Eosinophil % 1.9 % (0.7-5.8); Eosinophil (Absolute #) 0.16 x10^3/uL (0.04-0.36); Hematocrit 41.2 % (34.1-44.9); Hemoglobin 12.9 g/dL (11.2-15.7); IMMATURE GRAN # 0.06 x10^3u/L (0.001-0.031); IMMATURE GRAN % 0.7 % (0.001-0.429); Lymphocyte (Absolute #) 1.71 x10^3/uL (1.18-3.74); Lymphocytes % 20.3 % (19.3-51.7); Mean Cell Volume 96.9 fL (79.4-94.8); Mean Corpuscular Hemoglobin 30.4 pg (25.6-32.2); Mean Corpuscular Hgb Concent. 31.3 g/dL (32.2-35.5); Mean Platelet Volume 10.3 fL (9.4-12.3); Monocytes % 5.9 % (4.7-12.5); Neutrophil % 70.5 % (34.0-71.1); Platelet Count 189 x10^3/uL (182-369); Red Blood Count 4.25 x10^6/uL (3.93-5.22); Red Cell Distribution Width 12.9 % (11.7-14.4); White Blood Count 8.4 x10^3/uL (3.98-10.04)
[2024-03-27 23:29] VITALS: PULSE 81
[2024-03-27 23:33] LABS: PROTIME 10.9 SECONDS (9.4-12.5); PTT 30.7 SECONDS (25.1-36.5)
[2024-03-27 23:59] VITALS: BP 99/74
== END 2024-03-28 00:06 ==
LOC: ED 22:26
DX: R04.0 Epistaxis (principal)
CPT/HCPCS: 36415; 85025; 85610; 85730; 99282; 99283; A9270-GY